=== PATIENT | female | born 1960 | race Caucasian/White ===

== ENCOUNTER 2022-02-12 16:20 | Emergency (ER) | payer MEDICAID ==
[2022-02-12] MEDS ORDERED: Take Home: Sulfamethoxazole/Trimethoprim 800-160 MG Tab, 2 Tab Pack PO ONE (17:13)
[2022-02-12 19:47] VITALS: BP 96/53; PULSE 93
== END 2022-02-12 17:35 | disposition home or self-care (01) ==
LOC: VM.ED 16:20
DX: L03.221 Cellulitis of neck (principal); Z79.899 Other long term (current) drug therapy; Z87.891 Personal history of nicotine dependence; W57.XXXA Bitten or stung by nonvenomous insect and other nonvenomous arthropods, initial encounter
CPT/HCPCS: 99283; A9270-GY

== ENCOUNTER 2022-10-07 23:38 | Observation (INO) | payer MEDICAID, MEDICARE ==
[2022-10-07] MEDS ORDERED: Sodium Chloride 0.9% 1,000 ML IV SCH (23:45)
[2022-10-07] MEDS ORDERED: Sodium Chloride 0.9% 10 ML Syringe FLUSH PRN (23:45)
[2022-10-07] MEDS ORDERED: Iopamidol 612 MG/ML 100 ML Bottle IVPUSH ONE (23:52)
[2022-10-08 00:10] LABS: BASOPHILS PERCENT AUTO 0.2 % (0.2-1.2); EOSINOPHILS ABSOLUTE AUTO 0.3 x10^3/uL (0.0-0.5); EOSINOPHILS PERCENT AUTO 2.6 % (0.0-4.0); HEMATOCRIT 33.1 % (33.0-47.0); HEMOGLOBIN 11.1 g/dL (12.0-16.0); IMMATURE GRAN ABSOLUTE AUTO 0.02 x10^3/uL (0.00-0.07); LYMPHOCYTES ABSOLUTE AUTO 2.8 x10^3/uL (1.0-4.8); LYMPHOCYTES PERCENT AUTO 29.8 % (25.0-50.0); MEAN CORPUSCULAR HEMOGLOBIN 30.4 pg (26.0-32.0); MEAN CORPUSCULAR HGB CONC 33.5 g/dL (32.0-36.0); MEAN CORPUSCULAR VOLUME 90.7 fL (78.0-93.0); MONOCYTES ABSOLUTE AUTO 0.8 x10^3/uL (0.0-0.8); MONOCYTES PERCENT AUTO 8.7 % (2.0-11.0); NEUTROPHILS ABSOLUTE AUTO 5.5 x10^3/uL (1.8-7.7); NEUTROPHILS PERCENT AUTO 58.5 % (50.0-80.0); PLATELET COUNT,PLT 264 x10^3/uL (130-400); RED BLOOD CELL COUNT 3.65 x10^6/uL (4.00-5.50); WHITE BLOOD CELL COUNT,WBC 9.5 x10^3/uL (4.0-10.0)
[2022-10-08 00:19] LABS: PROTHROMBIN TIME 10.5 SEC (9.5-12.2)
[2022-10-08 00:31] LABS: A/G RATIO 1.19; ALANINE AMINOTRANSFERASE,ALT 30 U/L (14-59); ALBUMIN 3.7 g/dL (3.4-5.0); ALKALINE PHOSPHATASE 66 U/L (46-116); ASPARTATE AMNIOTRANSFERASE,AST 34 U/L (15-37); BILIRUBIN TOTAL 0.3 mg/dL (0.2-1.0); BLOOD UREA NITROGEN,BUN 41 mg/dL (7-18); CALCIUM 9.4 mg/dL (8.5-10.1); CARBON DIOXIDE,CO2 30 mmol/L (21-32); CHLORIDE,CL 102 mmol/L (98-107); CREATININE 1.1 mg/dL (0.55-1.02); GLUCOSE RANDOM 116 mg/dL (70-99); MAGNESIUM 1.9 mg/dL (1.8-2.4); POTASSIUM,K 4.2 mmol/L (3.5-5.1); PROTEIN TOTAL,TP 6.8 g/dL (6.4-8.2); SODIUM,NA 140 mmol/L (136-145)
[2022-10-08 00:33] LABS: ANION GAP 12.2 mmol/L (5-15); C-REACTIVE PROTEIN < 0.2 mg/dL (<=0.9); ESTIMATED GFR 57 mL/min (>=60); ETHANOL BLOOD MEDICAL < 3 mg/dL (0-3)
[2022-10-08] MEDS ORDERED: Sodium Chloride 0.9% 1,000 ML IV SCH ×2 (02:45→20:45)
[2022-10-08] MEDS ORDERED: Lactated Ringers 1,000 ML IV SCH (02:45)
[2022-10-08] MEDS ORDERED: ClonazePAM 0.5 MG Tab PO PRN (11:11)
[2022-10-08] MEDS ORDERED: Albuterol 0.083% 2.5 MG/3 ML Neb Soln INH PRN (11:11)
[2022-10-08] MEDS ORDERED: Naproxen 500 MG Tab PO PRN (14:00)
[2022-10-08] MEDS: Acetaminophen 500 MG Tab PO SCH ×2 (16:50→19:49)
[2022-10-08] MEDS: Formoterol/Mometasone 200-5 MCG 13 GM Inhaler INH SCH ×2 (17:00→21:10)
[2022-10-08 17:01] LABS: APPEARANCE,URINE CLEAR (CLEAR); BILIRUBIN,URINE NEGATIVE (NEGATIVE); COLOR,URINE YELLOW (YELLOW); GLUCOSE,URINE NEGATIVE (NEGATIVE); KETONES,URINE NEGATIVE (NEGATIVE); LEUKOCYTE ESTERASE,URINE TRACE (NEGATIVE); NITRITE,URINE NEGATIVE (NEGATIVE); OCCULT BLOOD,URINE NEGATIVE (NEGATIVE); PROTEIN,URINE NEGATIVE (NEGATIVE); UROBILINOGEN,URINE 0.2 EU/dL (0.2)
[2022-10-08] MEDS: busPIRone 15 MG Tab PO SCH ×2 (17:03→21:09)
[2022-10-08 17:09] LABS: AMPHETAMINES SCREEN, URINE NEGATIVE (NEGATIVE); BACTERIA,URINE RARE /HPF (NOT SEEN); BARBITURATE SCREEN,URINE NEGATIVE (NEGATIVE); MUCUS,URINE RARE /LPF (NOT SEEN); RBC,URINE 0-5 /HPF (NOT SEEN); SQUAMOUS EPITHELIAL CELLS,UR FEW /HPF (NOT SEEN)
[2022-10-08 17:10] LABS: BENZODIAZEPINES SCREEN,URINE NEGATIVE (NEGATIVE); BUPRENORPHINE SCREEN,URINE POSITIVE (NEGATIVE); COCAINE METABOLITES,URINE NEGATIVE (NEGATIVE); METHADONE SCREEN, URINE NEGATIVE (NEGATIVE); METHAMPHETAMINE SCREEN, URINE NEGATIVE (NEGATIVE); OXYCODONE SCREEN,URINE NEGATIVE (NEGATIVE); PCP SCREEN,URINE NEGATIVE (NEGATIVE); THC SCREEN,URINE 50 NG/ML NEGATIVE (NEGATIVE)
[2022-10-08] MEDS: Pregabalin 50 MG Cap PO SCH ×2 (17:17→17:31)
[2022-10-08] MEDS: Montelukast 10 MG Tab PO SCH (17:18)
[2022-10-08] MEDS: DULoxetine 60 MG Cap PO SCH ×2 (17:18→21:09)
[2022-10-08] MEDS: Pregabalin 25 MG Cap PO SCH ×2 (17:18→17:31)
[2022-10-08] MEDS: Loratadine 10 MG Tab PO SCH (17:18)
[2022-10-08] MEDS: Pantoprazole 40 MG Tab.CR PO SCH (17:19)
[2022-10-08] MEDS: Tiotropium Bromide 4 GM Inhalation Spray (2.5mcg/1 dose; 10 doses) INH SCH (17:19)
[2022-10-08] MEDS: Fluticasone Propionate Nasal Spray 9.9 ML BOTTLE NAS SCH ×2 (17:20→23:44)
[2022-10-08] MEDS ORDERED: PREGABALIN 225 MG PO SCH (21:00)
[2022-10-08] MEDS ORDERED: Non-Formulary Medication 1 Each (Fluticasone Propion/Salmeterol [Advair Hfa 230-21 Mcg Inh PO SCH (21:00)
[2022-10-09] MEDS: Acetaminophen 500 MG Tab PO SCH ×2 (06:08→06:17)
[2022-10-09] MEDS: Pantoprazole 40 MG Tab.CR PO SCH (06:17)
[2022-10-09 08:04] LABS: BASOPHILS PERCENT AUTO 0.4 % (0.2-1.2); EOSINOPHILS ABSOLUTE AUTO 0.2 x10^3/uL (0.0-0.5); EOSINOPHILS PERCENT AUTO 3.2 % (0.0-4.0); IMMATURE GRAN ABSOLUTE AUTO 0.01 x10^3/uL (0.00-0.07); LYMPHOCYTES ABSOLUTE AUTO 2.7 x10^3/uL (1.0-4.8); LYMPHOCYTES PERCENT AUTO 39.9 % (25.0-50.0); MEAN CORPUSCULAR HEMOGLOBIN 29.9 pg (26.0-32.0); MEAN CORPUSCULAR HGB CONC 32.3 g/dL (32.0-36.0); MEAN CORPUSCULAR VOLUME 92.8 fL (78.0-93.0); MONOCYTES ABSOLUTE AUTO 0.8 x10^3/uL (0.0-0.8); MONOCYTES PERCENT AUTO 11.3 % (2.0-11.0); NEUTROPHILS ABSOLUTE AUTO 3.1 x10^3/uL (1.8-7.7); NEUTROPHILS PERCENT AUTO 45.1 % (50.0-80.0); PLATELET COUNT,PLT 221 x10^3/uL (130-400); RED BLOOD CELL COUNT 3.34 x10^6/uL (4.00-5.50); WHITE BLOOD CELL COUNT,WBC 6.8 x10^3/uL (4.0-10.0)
[2022-10-09 08:22] LABS: A/G RATIO 0.96; ALBUMIN 2.6 g/dL (3.4-5.0); BILIRUBIN TOTAL 0.1 mg/dL (0.2-1.0); CALCIUM 8.2 mg/dL (8.5-10.1); CREATININE 0.7 mg/dL (0.55-1.02); EST CRCL DRUG DOSING (CG) 69.81 mL/min; POTASSIUM,K 4.3 mmol/L (3.5-5.1); PROTEIN TOTAL,TP 5.3 g/dL (6.4-8.2)
[2022-10-09 08:26] LABS: ANION GAP 9.3 mmol/L (5-15)
[2022-10-09] MEDS ORDERED: BREXPIPRAZOLE 4 MG PO SCH (09:00)
[2022-10-09] MEDS: Formoterol/Mometasone 200-5 MCG 13 GM Inhaler INH SCH (09:05)
[2022-10-09] MEDS: Montelukast 10 MG Tab PO SCH (09:05)
[2022-10-09] MEDS: DULoxetine 60 MG Cap PO SCH (09:05)
[2022-10-09] MEDS: Loratadine 10 MG Tab PO SCH (09:05)
[2022-10-09] MEDS: busPIRone 15 MG Tab PO SCH (09:05)
[2022-10-09] MEDS: Tiotropium Bromide 4 GM Inhalation Spray (2.5mcg/1 dose; 10 doses) INH SCH (09:06)
[2022-10-09] MEDS: Fluticasone Propionate Nasal Spray 9.9 ML BOTTLE NAS SCH (09:06)
[2022-10-09 15:01] VITALS: BP 115/58; PULSE 81
== END 2022-10-09 13:40 | disposition home or self-care (01) ==
LOC: VM.ED 23:38 → VM.MS 10-08 01:46
PROVIDERS: ADMIT Physician Assistant; ATTEND Physician Assistant
DX: K57.30 Diverticulosis of large intestine without perforation or abscess without bleeding (principal); R53.1 Weakness; J40 Bronchitis, not specified as acute or chronic; M19.90 Unspecified osteoarthritis, unspecified site; F32.A Depression, unspecified; Z79.899 Other long term (current) drug therapy; W19.XXXA Unspecified fall, initial encounter
CPT/HCPCS: 36415; 70450; 72125; 74177; 80053; 80305-QW; 80307; 81001; 83735; 84484; 85025; 85610; 85730; 86140; 87086; 93010; 96360; 96361; 99223; 99232; 99238; 99285-25; A9270-GY; J3490; J7030; J7120; Q9967

== ENCOUNTER 2022-10-21 05:32 | Observation (INO) | payer MEDICARE, MEDICAID ==
[2022-10-22] MEDS ORDERED: Naloxone 0.4 MG/ML SDV IVPUSH ONE (04:08)
[2022-10-22 04:13] LABS: BASOPHILS PERCENT AUTO 0.4 % (0.2-1.2); EOSINOPHILS ABSOLUTE AUTO 0.2 x10^3/uL (0.0-0.5); EOSINOPHILS PERCENT AUTO 2.8 % (0.0-4.0); HEMATOCRIT 36.5 % (33.0-47.0); HEMOGLOBIN 12.6 g/dL (12.0-16.0); IMMATURE GRAN ABSOLUTE AUTO 0.01 x10^3/uL (0.00-0.07); LYMPHOCYTES ABSOLUTE AUTO 1.4 x10^3/uL (1.0-4.8); LYMPHOCYTES PERCENT AUTO 18.9 % (25.0-50.0); MEAN CORPUSCULAR HEMOGLOBIN 31.2 pg (26.0-32.0); MEAN CORPUSCULAR HGB CONC 34.5 g/dL (32.0-36.0); MEAN CORPUSCULAR VOLUME 90.3 fL (78.0-93.0); MONOCYTES ABSOLUTE AUTO 0.5 x10^3/uL (0.0-0.8); MONOCYTES PERCENT AUTO 6.9 % (2.0-11.0); NEUTROPHILS ABSOLUTE AUTO 5.3 x10^3/uL (1.8-7.7); NEUTROPHILS PERCENT AUTO 70.9 % (50.0-80.0); PLATELET COUNT,PLT 322 x10^3/uL (130-400); RED BLOOD CELL COUNT 4.04 x10^6/uL (4.00-5.50); WHITE BLOOD CELL COUNT,WBC 7.5 x10^3/uL (4.0-10.0)
[2022-10-22] MEDS ORDERED: Sodium Chloride 0.9% 1,000 ML IV ONE (04:20)
[2022-10-22] MEDS ORDERED: Sodium Chloride 0.9% 1,000 ML IV SCH ×3 (04:20→08:07)
[2022-10-22] MEDS ORDERED: Flumazenil 0.1 MG/ML 5 ML MDV IVPUSH ONE ×2 (04:24→04:31)
[2022-10-22 04:31] LABS: A/G RATIO 1.05; ALANINE AMINOTRANSFERASE,ALT 20 U/L (14-59); ALBUMIN 3.9 g/dL (3.4-5.0); ALKALINE PHOSPHATASE 89 U/L (46-116); ANION GAP 12.5 mmol/L (5-15); ASPARTATE AMNIOTRANSFERASE,AST 17 U/L (15-37); BILIRUBIN TOTAL 0.4 mg/dL (0.2-1.0); BLOOD UREA NITROGEN,BUN 23 mg/dL (7-18); C-REACTIVE PROTEIN < 0.2 mg/dL (<=0.9); CALCIUM 9.2 mg/dL (8.5-10.1); CARBON DIOXIDE,CO2 31 mmol/L (21-32); CHLORIDE,CL 105 mmol/L (98-107); CREATINE KINASE,CK 107 U/L (26-192); CREATININE 0.8 mg/dL (0.55-1.02); ESTIMATED GFR 83 mL/min (>=60); ETHANOL BLOOD MEDICAL < 3 mg/dL (0-3); GLUCOSE RANDOM 149 mg/dL (70-99); LACTATE DEHYDROGENASE,LDH 195 U/L (81-234); POTASSIUM,K 4.5 mmol/L (3.5-5.1); PROTEIN TOTAL,TP 7.6 g/dL (6.4-8.2); SODIUM,NA 144 mmol/L (136-145)
[2022-10-22 05:22] LABS: APPEARANCE,URINE CLEAR (CLEAR); BILIRUBIN,URINE NEGATIVE (NEGATIVE); COLOR,URINE YELLOW (YELLOW); GLUCOSE,URINE NEGATIVE (NEGATIVE); KETONES,URINE NEGATIVE (NEGATIVE); LEUKOCYTE ESTERASE,URINE NEGATIVE (NEGATIVE); NITRITE,URINE NEGATIVE (NEGATIVE); OCCULT BLOOD,URINE NEGATIVE (NEGATIVE); PROTEIN,URINE NEGATIVE (NEGATIVE); UROBILINOGEN,URINE 0.2 EU/dL (0.2)
[2022-10-22 05:27] LABS: AMPHETAMINES SCREEN, URINE NEGATIVE (NEGATIVE)
[2022-10-22 05:28] LABS: BARBITURATE SCREEN,URINE NEGATIVE (NEGATIVE); BENZODIAZEPINES SCREEN,URINE NEGATIVE (NEGATIVE); BUPRENORPHINE SCREEN,URINE NEGATIVE (NEGATIVE); COCAINE METABOLITES,URINE NEGATIVE (NEGATIVE); METHADONE SCREEN, URINE NEGATIVE (NEGATIVE); METHAMPHETAMINE SCREEN, URINE NEGATIVE (NEGATIVE); OXYCODONE SCREEN,URINE NEGATIVE (NEGATIVE); PCP SCREEN,URINE NEGATIVE (NEGATIVE); THC SCREEN,URINE 50 NG/ML POSITIVE (NEGATIVE)
[2022-10-22] MEDS ORDERED: Sodium Chloride 0.9% 10 ML Syringe FLUSH PRN (05:57)
[2022-10-22] MEDS ORDERED: Ondansetron 4 MG Tab.DIS PO PRN (05:57)
[2022-10-22 16:25] VITALS: BP 132/62; PULSE 75
== END 2022-10-22 16:15 | disposition home or self-care (01) ==
LOC: VM.ED 05:32 → UNDOADMOB 10-22 05:32 → VM.MS 10-22 05:32
PROVIDERS: ADMIT Physician Assistant Medical; ATTEND Physician Assistant Medical
DX: R41.82 Altered mental status, unspecified (principal); E78.00 Pure hypercholesterolemia, unspecified; F41.9 Anxiety disorder, unspecified; F32.A Depression, unspecified; F17.200 Nicotine dependence, unspecified, uncomplicated; Z79.899 Other long term (current) drug therapy; Z98.890 Other specified postprocedural states; W19.XXXA Unspecified fall, initial encounter
CPT/HCPCS: 70450; 80053; 80305-QW; 80307; 81003; 82550; 83615; 85025; 86140; G0378; J2310; J3490; J7030

== ENCOUNTER 2022-11-19 08:29 | Inpatient (IN) | payer MEDICARE, MEDICAID ==
[2022-11-19] MEDS ORDERED: Albuterol/Ipratropium 3.0-0.5 MG/3 ML Neb Soln INH PRN (14:03)
[2022-11-19] MEDS ORDERED: Non-Formulary Medication 1 Each (Naloxone 4 MG Spray) NAS PRN (14:03)
[2022-11-19] MEDS ORDERED: Non-Formulary Medication 1 Each (Epinephrine [Epinephrine] 0.3 MG/0.3 ML Auto.Injct) IM PRN (14:03)
[2022-11-19] MEDS ORDERED: Albuterol 0.083% 2.5 MG/3 ML Neb Soln INH PRN (14:03)
[2022-11-19] MEDS ORDERED: diphenhydrAMINE 25 MG Cap PO PRN (14:03)
[2022-11-19] MEDS ORDERED: Ondansetron 4 MG Tab.DIS PO PRN (14:28)
[2022-11-19] MEDS ORDERED: Albuterol HFA 18 Gm Inhaler INH PRN (14:46)
[2022-11-19] MEDS: oxyCODONE 5 MG Tab PO PRN ×2 (15:11→19:43)
[2022-11-19] MEDS: Acetaminophen 500 MG Tab PO SCH (18:03)
[2022-11-19] MEDS: Polyethylene Glycol 3350 Powder 17 GM Packet PO SCH (20:49)
[2022-11-19] MEDS: Formoterol/Mometasone 200-5 MCG 13 GM Inhaler INH SCH (20:49)
[2022-11-19] MEDS: Fluticasone Propionate Nasal Spray 9.9 ML BOTTLE NAS SCH (20:50)
[2022-11-19] MEDS: Amitriptyline 25 MG Tab PO SCH (20:50)
[2022-11-19] MEDS: Zolpidem 5 MG Tab PO SCH (20:51)
[2022-11-19] MEDS: DULoxetine 60 MG Cap PO SCH (20:51)
[2022-11-19] MEDS: busPIRone 15 MG Tab PO SCH (20:51)
[2022-11-19] MEDS: Pregabalin 50 MG Cap PO SCH (20:51)
[2022-11-19] MEDS: Pregabalin 25 MG Cap PO SCH (20:51)
[2022-11-19] MEDS: ClonazePAM 0.5 MG Tab PO PRN (20:57)
[2022-11-19] MEDS ORDERED: PREGABALIN 225 MG PO SCH (21:00)
[2022-11-20] MEDS: oxyCODONE 5 MG Tab PO PRN ×3 (00:27→21:05)
[2022-11-20] MEDS: Acetaminophen 500 MG Tab PO SCH ×4 (00:28→18:07)
[2022-11-20] MEDS: Pantoprazole 40 MG Tab.CR PO SCH (06:36)
[2022-11-20] MEDS: Baclofen 10 MG Tab PO PRN (06:36)
[2022-11-20] MEDS ORDERED: BREXPIPRAZOLE 4 MG PO SCH (09:00)
[2022-11-20] MEDS: Multivitamin Tab PO SCH (09:03)
[2022-11-20] MEDS: Tiotropium Bromide 4 GM Inhalation Spray (2.5mcg/1 dose; 10 doses) INH SCH (09:03)
[2022-11-20] MEDS: DULoxetine 60 MG Cap PO SCH ×2 (09:03→21:05)
[2022-11-20] MEDS: busPIRone 15 MG Tab PO SCH ×2 (09:03→21:04)
[2022-11-20] MEDS: Pregabalin 50 MG Cap PO SCH ×2 (09:05→21:05)
[2022-11-20] MEDS: Montelukast 10 MG Tab PO SCH (09:06)
[2022-11-20] MEDS: Pregabalin 25 MG Cap PO SCH ×2 (09:06→21:04)
[2022-11-20] MEDS: Loratadine 10 MG Tab PO SCH (09:06)
[2022-11-20] MEDS: Polyethylene Glycol 3350 Powder 17 GM Packet PO SCH ×2 (09:07→21:04)
[2022-11-20] MEDS: Amitriptyline 25 MG Tab PO SCH ×3 (09:10→21:05)
[2022-11-20] MEDS: Formoterol/Mometasone 200-5 MCG 13 GM Inhaler INH SCH ×2 (09:12→21:03)
[2022-11-20] MEDS: Fluticasone Propionate Nasal Spray 9.9 ML BOTTLE NAS SCH ×2 (09:12→21:03)
[2022-11-20] MEDS: ClonazePAM 0.5 MG Tab PO PRN ×2 (09:18→21:04)
[2022-11-20] MEDS: Menthol Lozenge MUCMEM PRN ×2 (12:55→21:09)
[2022-11-20] MEDS: Zolpidem 5 MG Tab PO SCH (21:04)
[2022-11-21] MEDS: Acetaminophen 500 MG Tab PO SCH ×4 (00:42→18:17)
[2022-11-21] MEDS: Baclofen 10 MG Tab PO PRN ×2 (00:43→08:48)
[2022-11-21] MEDS: oxyCODONE 5 MG Tab PO PRN ×4 (02:41→20:57)
[2022-11-21] MEDS: Pantoprazole 40 MG Tab.CR PO SCH (06:44)
[2022-11-21] MEDS: Montelukast 10 MG Tab PO SCH (08:48)
[2022-11-21] MEDS: Loratadine 10 MG Tab PO SCH (08:48)
[2022-11-21] MEDS: DULoxetine 60 MG Cap PO SCH ×2 (08:48→20:57)
[2022-11-21] MEDS: Pregabalin 25 MG Cap PO SCH ×2 (08:49→20:56)
[2022-11-21] MEDS: busPIRone 15 MG Tab PO SCH ×2 (08:49→20:57)
[2022-11-21] MEDS: Pregabalin 50 MG Cap PO SCH ×2 (08:49→20:56)
[2022-11-21] MEDS: Polyethylene Glycol 3350 Powder 17 GM Packet PO SCH ×2 (08:49→20:55)
[2022-11-21] MEDS: Formoterol/Mometasone 200-5 MCG 13 GM Inhaler INH SCH ×2 (08:51→20:55)
[2022-11-21] MEDS: Fluticasone Propionate Nasal Spray 9.9 ML BOTTLE NAS SCH ×2 (08:51→20:55)
[2022-11-21] MEDS: Tiotropium Bromide 4 GM Inhalation Spray (2.5mcg/1 dose; 10 doses) INH SCH (08:51)
[2022-11-21] MEDS: Multivitamin Tab PO SCH (08:52)
[2022-11-21] MEDS: Amitriptyline 25 MG Tab PO SCH ×3 (08:59→20:56)
[2022-11-21] MEDS: ClonazePAM 0.5 MG Tab PO PRN ×2 (09:04→20:58)
[2022-11-21] MEDS: Zolpidem 5 MG Tab PO SCH (20:57)
[2022-11-22] MEDS: Acetaminophen 500 MG Tab PO SCH ×4 (01:52→18:06)
[2022-11-22] MEDS: Baclofen 10 MG Tab PO PRN ×2 (01:53→20:35)
[2022-11-22] MEDS: Pantoprazole 40 MG Tab.CR PO SCH (06:00)
[2022-11-22] MEDS: oxyCODONE 5 MG Tab PO PRN ×4 (06:00→22:34)
[2022-11-22] MEDS: Tiotropium Bromide 4 GM Inhalation Spray (2.5mcg/1 dose; 10 doses) INH SCH (09:20)
[2022-11-22] MEDS: Formoterol/Mometasone 200-5 MCG 13 GM Inhaler INH SCH ×2 (09:21→20:34)
[2022-11-22] MEDS: Polyethylene Glycol 3350 Powder 17 GM Packet PO SCH ×2 (09:21→20:37)
[2022-11-22] MEDS: Fluticasone Propionate Nasal Spray 9.9 ML BOTTLE NAS SCH ×2 (09:21→20:34)
[2022-11-22] MEDS: Pregabalin 50 MG Cap PO SCH ×2 (09:22→20:34)
[2022-11-22] MEDS: Loratadine 10 MG Tab PO SCH (09:22)
[2022-11-22] MEDS: DULoxetine 60 MG Cap PO SCH ×2 (09:22→20:35)
[2022-11-22] MEDS: Pregabalin 25 MG Cap PO SCH ×2 (09:22→20:35)
[2022-11-22] MEDS: busPIRone 15 MG Tab PO SCH ×2 (09:24→20:35)
[2022-11-22] MEDS: Montelukast 10 MG Tab PO SCH (09:24)
[2022-11-22] MEDS: Multivitamin Tab PO SCH (09:24)
[2022-11-22] MEDS: Amitriptyline 25 MG Tab PO SCH ×3 (09:24→20:34)
[2022-11-22] MEDS: ClonazePAM 0.5 MG Tab PO PRN ×2 (09:30→20:33)
[2022-11-22] MEDS: Zolpidem 5 MG Tab PO SCH (20:35)
[2022-11-22] MEDS: Menthol Lozenge MUCMEM PRN (20:38)
[2022-11-23] MEDS: Acetaminophen 500 MG Tab PO SCH ×4 (01:35→18:39)
[2022-11-23] MEDS: oxyCODONE 5 MG Tab PO PRN ×3 (04:06→13:38)
[2022-11-23] MEDS: Pantoprazole 40 MG Tab.CR PO SCH (06:32)
[2022-11-23] MEDS: Baclofen 10 MG Tab PO PRN (06:32)
[2022-11-23] MEDS: Menthol Lozenge MUCMEM PRN ×2 (06:33→13:38)
[2022-11-23] MEDS: Pregabalin 50 MG Cap PO SCH ×2 (08:21→20:40)
[2022-11-23] MEDS: DULoxetine 60 MG Cap PO SCH ×2 (08:21→20:39)
[2022-11-23] MEDS: Loratadine 10 MG Tab PO SCH (08:21)
[2022-11-23] MEDS: Pregabalin 25 MG Cap PO SCH ×2 (08:21→20:40)
[2022-11-23] MEDS: busPIRone 15 MG Tab PO SCH ×2 (08:22→20:39)
[2022-11-23] MEDS: Amitriptyline 25 MG Tab PO SCH ×3 (08:22→20:40)
[2022-11-23] MEDS: Montelukast 10 MG Tab PO SCH (08:22)
[2022-11-23] MEDS: Multivitamin Tab PO SCH (08:22)
[2022-11-23] MEDS: Polyethylene Glycol 3350 Powder 17 GM Packet PO SCH ×2 (08:25→20:39)
[2022-11-23] MEDS: Fluticasone Propionate Nasal Spray 9.9 ML BOTTLE NAS SCH ×2 (08:27→20:42)
[2022-11-23] MEDS: Formoterol/Mometasone 200-5 MCG 13 GM Inhaler INH SCH ×2 (08:27→20:42)
[2022-11-23] MEDS: Tiotropium Bromide 4 GM Inhalation Spray (2.5mcg/1 dose; 10 doses) INH SCH (08:27)
[2022-11-23] MEDS: Zolpidem 5 MG Tab PO SCH (20:39)
[2022-11-24] MEDS: Acetaminophen 500 MG Tab PO SCH ×4 (02:59→18:33)
[2022-11-24] MEDS: oxyCODONE 5 MG Tab PO PRN ×4 (03:00→21:39)
[2022-11-24] MEDS: Pantoprazole 40 MG Tab.CR PO SCH (06:40)
[2022-11-24] MEDS: Multivitamin Tab PO SCH (08:59)
[2022-11-24] MEDS: DULoxetine 60 MG Cap PO SCH ×2 (08:59→21:37)
[2022-11-24] MEDS: Montelukast 10 MG Tab PO SCH (08:59)
[2022-11-24] MEDS: Pregabalin 25 MG Cap PO SCH ×2 (08:59→21:45)
[2022-11-24] MEDS: Loratadine 10 MG Tab PO SCH (08:59)
[2022-11-24] MEDS: Pregabalin 50 MG Cap PO SCH ×2 (08:59→21:38)
[2022-11-24] MEDS: Amitriptyline 25 MG Tab PO SCH ×3 (09:00→21:37)
[2022-11-24] MEDS: Tiotropium Bromide 4 GM Inhalation Spray (2.5mcg/1 dose; 10 doses) INH SCH (09:00)
[2022-11-24] MEDS: busPIRone 15 MG Tab PO SCH ×2 (09:00→21:38)
[2022-11-24] MEDS: Fluticasone Propionate Nasal Spray 9.9 ML BOTTLE NAS SCH ×2 (09:00→21:44)
[2022-11-24] MEDS: Formoterol/Mometasone 200-5 MCG 13 GM Inhaler INH SCH ×2 (09:00→21:44)
[2022-11-24] MEDS: Polyethylene Glycol 3350 Powder 17 GM Packet PO SCH ×2 (09:03→21:39)
[2022-11-24] MEDS: Zolpidem 5 MG Tab PO SCH (21:38)
[2022-11-25] MEDS: Acetaminophen 500 MG Tab PO SCH ×4 (00:03→18:27)
[2022-11-25] MEDS: oxyCODONE 5 MG Tab PO PRN ×4 (05:04→20:17)
[2022-11-25] MEDS: Pantoprazole 40 MG Tab.CR PO SCH (06:17)
[2022-11-25] MEDS: Polyethylene Glycol 3350 Powder 17 GM Packet PO SCH ×2 (09:06→20:15)
[2022-11-25] MEDS: Multivitamin Tab PO SCH (09:06)
[2022-11-25] MEDS: Amitriptyline 25 MG Tab PO SCH ×3 (09:06→20:16)
[2022-11-25] MEDS: busPIRone 15 MG Tab PO SCH ×2 (09:06→20:16)
[2022-11-25] MEDS: Loratadine 10 MG Tab PO SCH (09:07)
[2022-11-25] MEDS: Montelukast 10 MG Tab PO SCH (09:07)
[2022-11-25] MEDS: Pregabalin 25 MG Cap PO SCH ×2 (09:07→20:16)
[2022-11-25] MEDS: DULoxetine 60 MG Cap PO SCH ×2 (09:07→20:16)
[2022-11-25] MEDS: Pregabalin 50 MG Cap PO SCH ×2 (09:08→20:16)
[2022-11-25] MEDS: Formoterol/Mometasone 200-5 MCG 13 GM Inhaler INH SCH ×2 (09:14→20:15)
[2022-11-25] MEDS: Tiotropium Bromide 4 GM Inhalation Spray (2.5mcg/1 dose; 10 doses) INH SCH (09:14)
[2022-11-25] MEDS: Fluticasone Propionate Nasal Spray 9.9 ML BOTTLE NAS SCH ×2 (09:14→20:16)
[2022-11-25] MEDS: Zolpidem 5 MG Tab PO SCH (20:17)
[2022-11-26] MEDS: oxyCODONE 5 MG Tab PO PRN ×5 (01:08→20:08)
[2022-11-26] MEDS: Acetaminophen 500 MG Tab PO SCH ×4 (01:08→18:34)
[2022-11-26] MEDS: Pantoprazole 40 MG Tab.CR PO SCH (06:08)
[2022-11-26] MEDS: Polyethylene Glycol 3350 Powder 17 GM Packet PO SCH ×2 (09:36→20:10)
[2022-11-26] MEDS: Pregabalin 50 MG Cap PO SCH ×2 (09:37→20:08)
[2022-11-26] MEDS: Pregabalin 25 MG Cap PO SCH ×2 (09:37→20:10)
[2022-11-26] MEDS: Multivitamin Tab PO SCH (09:38)
[2022-11-26] MEDS: Amitriptyline 25 MG Tab PO SCH ×3 (09:38→20:09)
[2022-11-26] MEDS: DULoxetine 60 MG Cap PO SCH ×2 (09:38→20:09)
[2022-11-26] MEDS: busPIRone 15 MG Tab PO SCH ×2 (09:38→20:09)
[2022-11-26] MEDS: Loratadine 10 MG Tab PO SCH (09:38)
[2022-11-26] MEDS: Montelukast 10 MG Tab PO SCH (09:38)
[2022-11-26] MEDS: Fluticasone Propionate Nasal Spray 9.9 ML BOTTLE NAS SCH ×2 (09:39→20:11)
[2022-11-26] MEDS: Tiotropium Bromide 4 GM Inhalation Spray (2.5mcg/1 dose; 10 doses) INH SCH (09:40)
[2022-11-26] MEDS: Formoterol/Mometasone 200-5 MCG 13 GM Inhaler INH SCH ×2 (09:40→20:11)
[2022-11-26] MEDS: Zolpidem 5 MG Tab PO SCH (20:09)
[2022-11-27] MEDS: oxyCODONE 5 MG Tab PO PRN ×5 (00:01→20:23)
[2022-11-27] MEDS: Pantoprazole 40 MG Tab.CR PO SCH (06:03)
[2022-11-27] MEDS: Acetaminophen 500 MG Tab PO SCH ×4 (06:03→18:03)
[2022-11-27] MEDS: Polyethylene Glycol 3350 Powder 17 GM Packet PO SCH ×2 (08:48→20:22)
[2022-11-27] MEDS: Pregabalin 50 MG Cap PO SCH ×2 (08:49→20:22)
[2022-11-27] MEDS: Amitriptyline 25 MG Tab PO SCH ×3 (08:50→20:22)
[2022-11-27] MEDS: Fluticasone Propionate Nasal Spray 9.9 ML BOTTLE NAS SCH ×2 (08:50→20:24)
[2022-11-27] MEDS: DULoxetine 60 MG Cap PO SCH ×2 (08:50→20:24)
[2022-11-27] MEDS: Multivitamin Tab PO SCH (08:50)
[2022-11-27] MEDS: Montelukast 10 MG Tab PO SCH (08:51)
[2022-11-27] MEDS: Formoterol/Mometasone 200-5 MCG 13 GM Inhaler INH SCH ×2 (08:51→20:24)
[2022-11-27] MEDS: busPIRone 15 MG Tab PO SCH ×2 (08:51→20:23)
[2022-11-27] MEDS: Loratadine 10 MG Tab PO SCH (08:51)
[2022-11-27] MEDS: Tiotropium Bromide 4 GM Inhalation Spray (2.5mcg/1 dose; 10 doses) INH SCH (08:51)
[2022-11-27] MEDS: Pregabalin 25 MG Cap PO SCH ×2 (08:51→20:25)
[2022-11-27] MEDS: ClonazePAM 0.5 MG Tab PO PRN (14:29)
[2022-11-27] MEDS: Baclofen 10 MG Tab PO PRN (18:06)
[2022-11-27] MEDS: Zolpidem 5 MG Tab PO SCH (20:23)
[2022-11-28] MEDS: Acetaminophen 500 MG Tab PO SCH ×4 (00:48→18:03)
[2022-11-28] MEDS: oxyCODONE 5 MG Tab PO PRN ×5 (00:49→21:43)
[2022-11-28] MEDS: Pantoprazole 40 MG Tab.CR PO SCH (06:41)
[2022-11-28] MEDS: Polyethylene Glycol 3350 Powder 17 GM Packet PO SCH ×2 (09:01→20:34)
[2022-11-28] MEDS: Pregabalin 50 MG Cap PO SCH ×2 (09:11→20:29)
[2022-11-28] MEDS: busPIRone 15 MG Tab PO SCH ×2 (09:11→20:29)
[2022-11-28] MEDS: Loratadine 10 MG Tab PO SCH (09:12)
[2022-11-28] MEDS: Pregabalin 25 MG Cap PO SCH ×2 (09:12→20:29)
[2022-11-28] MEDS: Multivitamin Tab PO SCH (09:12)
[2022-11-28] MEDS: DULoxetine 60 MG Cap PO SCH ×2 (09:12→20:29)
[2022-11-28] MEDS: Montelukast 10 MG Tab PO SCH (09:12)
[2022-11-28] MEDS: Amitriptyline 25 MG Tab PO SCH ×2 (09:12→12:09)
[2022-11-28] MEDS: Formoterol/Mometasone 200-5 MCG 13 GM Inhaler INH SCH ×2 (09:13→20:28)
[2022-11-28] MEDS: Tiotropium Bromide 4 GM Inhalation Spray (2.5mcg/1 dose; 10 doses) INH SCH (09:13)
[2022-11-28] MEDS: Fluticasone Propionate Nasal Spray 9.9 ML BOTTLE NAS SCH ×2 (09:13→20:28)
[2022-11-28] MEDS: ClonazePAM 0.5 MG Tab PO PRN (12:08)
[2022-11-28] MEDS: Zolpidem 5 MG Tab PO SCH (20:29)
[2022-11-29] MEDS: Acetaminophen 500 MG Tab PO SCH ×4 (02:35→18:00)
[2022-11-29] MEDS: oxyCODONE 5 MG Tab PO PRN ×4 (03:58→22:45)
[2022-11-29] MEDS: Pantoprazole 40 MG Tab.CR PO SCH (06:27)
[2022-11-29] MEDS: Fluticasone Propionate Nasal Spray 9.9 ML BOTTLE NAS SCH ×2 (09:08→22:18)
[2022-11-29] MEDS: Tiotropium Bromide 4 GM Inhalation Spray (2.5mcg/1 dose; 10 doses) INH SCH (09:08)
[2022-11-29] MEDS: Formoterol/Mometasone 200-5 MCG 13 GM Inhaler INH SCH ×2 (09:09→22:18)
[2022-11-29] MEDS: Pregabalin 50 MG Cap PO SCH ×2 (09:09→22:18)
[2022-11-29] MEDS: busPIRone 15 MG Tab PO SCH ×2 (09:09→22:19)
[2022-11-29] MEDS: Multivitamin Tab PO SCH (09:10)
[2022-11-29] MEDS: DULoxetine 60 MG Cap PO SCH ×2 (09:10→22:19)
[2022-11-29] MEDS: Amitriptyline 25 MG Tab PO SCH ×2 (09:10→12:02)
[2022-11-29] MEDS: Polyethylene Glycol 3350 Powder 17 GM Packet PO SCH ×2 (09:10→09:11)
[2022-11-29] MEDS: Loratadine 10 MG Tab PO SCH (09:11)
[2022-11-29] MEDS: Montelukast 10 MG Tab PO SCH (09:11)
[2022-11-29] MEDS: Pregabalin 25 MG Cap PO SCH ×2 (09:11→22:18)
[2022-11-29] MEDS: ClonazePAM 0.5 MG Tab PO PRN (09:16)
[2022-11-29] MEDS: Baclofen 10 MG Tab PO PRN (18:00)
[2022-11-29] MEDS: Zolpidem 5 MG Tab PO SCH (22:19)
[2022-11-30] MEDS: Acetaminophen 500 MG Tab PO SCH ×5 (00:58→19:58)
[2022-11-30] MEDS: oxyCODONE 5 MG Tab PO PRN ×3 (02:58→12:51)
[2022-11-30] MEDS: Pantoprazole 40 MG Tab.CR PO SCH (07:06)
[2022-11-30] MEDS: Amitriptyline 25 MG Tab PO SCH ×2 (08:22→12:03)
[2022-11-30] MEDS: busPIRone 15 MG Tab PO SCH ×2 (08:23→20:46)
[2022-11-30] MEDS: Pregabalin 50 MG Cap PO SCH ×2 (08:24→20:47)
[2022-11-30] MEDS: Multivitamin Tab PO SCH (08:26)
[2022-11-30] MEDS: DULoxetine 60 MG Cap PO SCH ×2 (08:26→20:47)
[2022-11-30] MEDS: Loratadine 10 MG Tab PO SCH (08:27)
[2022-11-30] MEDS: Pregabalin 25 MG Cap PO SCH ×2 (08:27→20:48)
[2022-11-30] MEDS: Montelukast 10 MG Tab PO SCH (08:28)
[2022-11-30] MEDS: Fluticasone Propionate Nasal Spray 9.9 ML BOTTLE NAS SCH ×2 (08:29→20:43)
[2022-11-30] MEDS: Formoterol/Mometasone 200-5 MCG 13 GM Inhaler INH SCH ×2 (08:30→20:45)
[2022-11-30] MEDS: Tiotropium Bromide 4 GM Inhalation Spray (2.5mcg/1 dose; 10 doses) INH SCH (08:32)
[2022-11-30] MEDS: ClonazePAM 0.5 MG Tab PO PRN (09:53)
[2022-11-30] MEDS: Zolpidem 5 MG Tab PO SCH (20:48)
[2022-12-01] MEDS: oxyCODONE 5 MG Tab PO PRN ×2 (01:19→08:27)
[2022-12-01] MEDS: Acetaminophen 500 MG Tab PO SCH ×4 (01:21→20:33)
[2022-12-01] MEDS: Menthol Lozenge MUCMEM PRN ×2 (01:24→20:28)
[2022-12-01] MEDS: Pantoprazole 40 MG Tab.CR PO SCH (06:05)
[2022-12-01] MEDS: Pregabalin 50 MG Cap PO SCH ×2 (08:24→20:31)
[2022-12-01] MEDS: DULoxetine 60 MG Cap PO SCH ×2 (08:25→20:32)
[2022-12-01] MEDS: Amitriptyline 25 MG Tab PO SCH ×2 (08:27→13:06)
[2022-12-01] MEDS: busPIRone 15 MG Tab PO SCH ×2 (08:31→20:33)
[2022-12-01] MEDS: Montelukast 10 MG Tab PO SCH (08:31)
[2022-12-01] MEDS: Loratadine 10 MG Tab PO SCH (08:31)
[2022-12-01] MEDS: Formoterol/Mometasone 200-5 MCG 13 GM Inhaler INH SCH ×2 (08:33→20:29)
[2022-12-01] MEDS: Tiotropium Bromide 4 GM Inhalation Spray (2.5mcg/1 dose; 10 doses) INH SCH (08:33)
[2022-12-01] MEDS: Fluticasone Propionate Nasal Spray 9.9 ML BOTTLE NAS SCH ×2 (08:33→20:29)
[2022-12-01] MEDS: Pregabalin 25 MG Cap PO SCH ×2 (08:34→20:32)
[2022-12-01] MEDS: Multivitamin Tab PO SCH (08:35)
[2022-12-01] MEDS: Polyethylene Glycol 3350 Powder 17 GM Packet PO SCH (08:36)
[2022-12-01] MEDS: ClonazePAM 0.5 MG Tab PO PRN ×2 (13:05→22:05)
[2022-12-01] MEDS: Zolpidem 5 MG Tab PO SCH (22:05)
[2022-12-02] MEDS: Acetaminophen 500 MG Tab PO SCH ×4 (01:00→18:55)
[2022-12-02] MEDS: Pantoprazole 40 MG Tab.CR PO SCH (06:19)
[2022-12-02] MEDS: Montelukast 10 MG Tab PO SCH (09:50)
[2022-12-02] MEDS: busPIRone 15 MG Tab PO SCH ×2 (09:50→20:59)
[2022-12-02] MEDS: Pregabalin 50 MG Cap PO SCH ×2 (09:50→20:59)
[2022-12-02] MEDS: Amitriptyline 25 MG Tab PO SCH ×2 (09:51→12:59)
[2022-12-02] MEDS: DULoxetine 60 MG Cap PO SCH ×2 (09:51→20:59)
[2022-12-02] MEDS: Pregabalin 25 MG Cap PO SCH ×2 (09:51→20:59)
[2022-12-02] MEDS: Loratadine 10 MG Tab PO SCH (09:51)
[2022-12-02] MEDS: Multivitamin Tab PO SCH (09:54)
[2022-12-02] MEDS: ClonazePAM 0.5 MG Tab PO PRN ×2 (09:55→21:00)
[2022-12-02] MEDS: Tiotropium Bromide 4 GM Inhalation Spray (2.5mcg/1 dose; 10 doses) INH SCH (09:56)
[2022-12-02] MEDS: Formoterol/Mometasone 200-5 MCG 13 GM Inhaler INH SCH ×2 (09:56→21:02)
[2022-12-02] MEDS: Fluticasone Propionate Nasal Spray 9.9 ML BOTTLE NAS SCH ×2 (09:57→21:02)
[2022-12-02] MEDS: oxyCODONE 5 MG Tab PO PRN (15:03)
[2022-12-02] MEDS: Zolpidem 5 MG Tab PO SCH (21:00)
[2022-12-03] MEDS: Acetaminophen 500 MG Tab PO SCH ×4 (02:00→18:28)
[2022-12-03] MEDS: Pantoprazole 40 MG Tab.CR PO SCH (06:42)
[2022-12-03] MEDS: DULoxetine 60 MG Cap PO SCH ×2 (08:56→21:21)
[2022-12-03] MEDS: Pregabalin 50 MG Cap PO SCH ×2 (08:56→21:22)
[2022-12-03] MEDS: Polyethylene Glycol 3350 Powder 17 GM Packet PO SCH (08:56)
[2022-12-03] MEDS: Multivitamin Tab PO SCH (08:56)
[2022-12-03] MEDS: busPIRone 15 MG Tab PO SCH ×2 (08:57→21:21)
[2022-12-03] MEDS: Amitriptyline 25 MG Tab PO SCH ×2 (08:57→11:56)
[2022-12-03] MEDS: Pregabalin 25 MG Cap PO SCH ×2 (08:57→21:22)
[2022-12-03] MEDS: Loratadine 10 MG Tab PO SCH (08:57)
[2022-12-03] MEDS: Montelukast 10 MG Tab PO SCH (08:57)
[2022-12-03] MEDS: ClonazePAM 0.5 MG Tab PO PRN ×2 (09:01→21:21)
[2022-12-03] MEDS: Baclofen 10 MG Tab PO PRN (09:01)
[2022-12-03] MEDS: Fluticasone Propionate Nasal Spray 9.9 ML BOTTLE NAS SCH ×2 (09:03→21:20)
[2022-12-03] MEDS: Tiotropium Bromide 4 GM Inhalation Spray (2.5mcg/1 dose; 10 doses) INH SCH (09:03)
[2022-12-03] MEDS: Formoterol/Mometasone 200-5 MCG 13 GM Inhaler INH SCH ×2 (09:03→21:20)
[2022-12-03] MEDS: oxyCODONE 5 MG Tab PO PRN (11:56)
[2022-12-03] MEDS: Menthol Lozenge MUCMEM PRN ×3 (13:41→18:28)
[2022-12-03] MEDS: Zolpidem 5 MG Tab PO SCH (21:21)
[2022-12-04] MEDS: Acetaminophen 500 MG Tab PO SCH ×4 (01:48→18:40)
[2022-12-04] MEDS: oxyCODONE 5 MG Tab PO PRN ×2 (06:40→14:15)
[2022-12-04] MEDS: Pantoprazole 40 MG Tab.CR PO SCH (06:41)
[2022-12-04] MEDS: Pregabalin 50 MG Cap PO SCH ×2 (09:04→20:47)
[2022-12-04] MEDS: Pregabalin 25 MG Cap PO SCH ×2 (09:04→20:46)
[2022-12-04] MEDS: busPIRone 15 MG Tab PO SCH ×2 (09:04→20:47)
[2022-12-04] MEDS: Amitriptyline 25 MG Tab PO SCH ×2 (09:04→12:29)
[2022-12-04] MEDS: Loratadine 10 MG Tab PO SCH (09:05)
[2022-12-04] MEDS: Montelukast 10 MG Tab PO SCH (09:05)
[2022-12-04] MEDS: Multivitamin Tab PO SCH (09:05)
[2022-12-04] MEDS: DULoxetine 60 MG Cap PO SCH ×2 (09:05→20:47)
[2022-12-04] MEDS: ClonazePAM 0.5 MG Tab PO PRN ×2 (09:07→20:47)
[2022-12-04] MEDS: Baclofen 10 MG Tab PO PRN ×2 (09:07→20:50)
[2022-12-04] MEDS: Formoterol/Mometasone 200-5 MCG 13 GM Inhaler INH SCH ×2 (09:08→20:46)
[2022-12-04] MEDS: Tiotropium Bromide 4 GM Inhalation Spray (2.5mcg/1 dose; 10 doses) INH SCH (09:08)
[2022-12-04] MEDS: Fluticasone Propionate Nasal Spray 9.9 ML BOTTLE NAS SCH ×2 (09:09→20:46)
[2022-12-04] MEDS: Menthol Lozenge MUCMEM PRN ×3 (09:09→20:45)
[2022-12-04] MEDS: Zolpidem 5 MG Tab PO SCH (20:48)
[2022-12-05] MEDS: oxyCODONE 5 MG Tab PO PRN (00:26)
[2022-12-05] MEDS: Acetaminophen 500 MG Tab PO SCH ×4 (00:27→18:38)
[2022-12-05] MEDS: Pantoprazole 40 MG Tab.CR PO SCH (06:18)
[2022-12-05] MEDS: Multivitamin Tab PO SCH (10:06)
[2022-12-05] MEDS: DULoxetine 60 MG Cap PO SCH ×2 (10:06→21:13)
[2022-12-05] MEDS: Loratadine 10 MG Tab PO SCH (10:06)
[2022-12-05] MEDS: ClonazePAM 0.5 MG Tab PO PRN ×2 (10:06→21:13)
[2022-12-05] MEDS: Montelukast 10 MG Tab PO SCH (10:06)
[2022-12-05] MEDS: Pregabalin 50 MG Cap PO SCH ×2 (10:07→21:13)
[2022-12-05] MEDS: busPIRone 15 MG Tab PO SCH ×2 (10:07→21:13)
[2022-12-05] MEDS: Pregabalin 25 MG Cap PO SCH ×2 (10:07→21:12)
[2022-12-05] MEDS: Baclofen 10 MG Tab PO PRN ×2 (10:08→21:13)
[2022-12-05] MEDS: Amitriptyline 25 MG Tab PO SCH ×2 (10:08→12:51)
[2022-12-05] MEDS: Polyethylene Glycol 3350 Powder 17 GM Packet PO SCH (10:08)
[2022-12-05] MEDS: Fluticasone Propionate Nasal Spray 9.9 ML BOTTLE NAS SCH ×2 (10:09→21:13)
[2022-12-05] MEDS: Formoterol/Mometasone 200-5 MCG 13 GM Inhaler INH SCH ×2 (10:09→21:13)
[2022-12-05] MEDS: Tiotropium Bromide 4 GM Inhalation Spray (2.5mcg/1 dose; 10 doses) INH SCH (10:10)
[2022-12-05] MEDS ORDERED: Polyethylene Glycol 3350 Powder 17 GM Packet PO PRN (13:32)
[2022-12-05] MEDS ORDERED: oxyCODONE 5 MG Tab PO PRN (13:32)
[2022-12-05] MEDS: Zolpidem 5 MG Tab PO SCH (21:13)
[2022-12-06] MEDS: Acetaminophen 500 MG Tab PO SCH ×4 (00:45→18:31)
[2022-12-06] MEDS: Pantoprazole 40 MG Tab.CR PO SCH (06:31)
[2022-12-06] MEDS: Tiotropium Bromide 4 GM Inhalation Spray (2.5mcg/1 dose; 10 doses) INH SCH (08:34)
[2022-12-06] MEDS: DULoxetine 60 MG Cap PO SCH ×2 (08:34→20:31)
[2022-12-06] MEDS: Formoterol/Mometasone 200-5 MCG 13 GM Inhaler INH SCH ×2 (08:34→20:32)
[2022-12-06] MEDS: Fluticasone Propionate Nasal Spray 9.9 ML BOTTLE NAS SCH ×2 (08:34→20:32)
[2022-12-06] MEDS: Amitriptyline 25 MG Tab PO SCH ×2 (08:35→12:26)
[2022-12-06] MEDS: Pregabalin 25 MG Cap PO SCH ×2 (08:35→20:32)
[2022-12-06] MEDS: Loratadine 10 MG Tab PO SCH (08:35)
[2022-12-06] MEDS: Pregabalin 50 MG Cap PO SCH ×2 (08:35→20:31)
[2022-12-06] MEDS: Multivitamin Tab PO SCH (08:35)
[2022-12-06] MEDS: Montelukast 10 MG Tab PO SCH (08:35)
[2022-12-06] MEDS: busPIRone 15 MG Tab PO SCH ×2 (08:35→20:32)
[2022-12-06] MEDS: Baclofen 10 MG Tab PO PRN (08:37)
[2022-12-06] MEDS: ClonazePAM 0.5 MG Tab PO PRN ×2 (09:56→21:56)
[2022-12-06] MEDS: Zolpidem 5 MG Tab PO SCH (20:31)
[2022-12-07] MEDS: Acetaminophen 500 MG Tab PO SCH ×4 (00:30→18:15)
[2022-12-07] MEDS: Baclofen 10 MG Tab PO PRN ×3 (00:31→20:58)
[2022-12-07] MEDS: Pantoprazole 40 MG Tab.CR PO SCH (06:30)
[2022-12-07] MEDS: Tiotropium Bromide 4 GM Inhalation Spray (2.5mcg/1 dose; 10 doses) INH SCH (08:43)
[2022-12-07] MEDS: Fluticasone Propionate Nasal Spray 9.9 ML BOTTLE NAS SCH ×2 (08:43→20:57)
[2022-12-07] MEDS: Pregabalin 25 MG Cap PO SCH ×2 (08:44→20:58)
[2022-12-07] MEDS: Formoterol/Mometasone 200-5 MCG 13 GM Inhaler INH SCH ×2 (08:44→20:58)
[2022-12-07] MEDS: Montelukast 10 MG Tab PO SCH (08:44)
[2022-12-07] MEDS: Loratadine 10 MG Tab PO SCH (08:44)
[2022-12-07] MEDS: DULoxetine 60 MG Cap PO SCH ×2 (08:45→20:58)
[2022-12-07] MEDS: Pregabalin 50 MG Cap PO SCH ×2 (08:45→20:58)
[2022-12-07] MEDS: Multivitamin Tab PO SCH (08:45)
[2022-12-07] MEDS: Amitriptyline 25 MG Tab PO SCH ×2 (08:45→12:38)
[2022-12-07] MEDS: busPIRone 15 MG Tab PO SCH ×2 (08:45→20:58)
[2022-12-07] MEDS: ClonazePAM 0.5 MG Tab PO PRN (12:38)
[2022-12-07] MEDS: Menthol Lozenge MUCMEM PRN (20:59)
[2022-12-07] MEDS: Zolpidem 5 MG Tab PO SCH (20:59)
[2022-12-08] MEDS: Acetaminophen 500 MG Tab PO SCH ×3 (00:46→12:03)
[2022-12-08] MEDS: Menthol Lozenge MUCMEM PRN ×2 (00:48→06:22)
[2022-12-08] MEDS: Pantoprazole 40 MG Tab.CR PO SCH (06:20)
[2022-12-08] MEDS: Baclofen 10 MG Tab PO PRN (06:20)
[2022-12-08] MEDS: Amitriptyline 25 MG Tab PO SCH ×2 (08:34→12:03)
[2022-12-08] MEDS: Pregabalin 50 MG Cap PO SCH (08:35)
[2022-12-08] MEDS: Montelukast 10 MG Tab PO SCH (08:36)
[2022-12-08] MEDS: Pregabalin 25 MG Cap PO SCH (08:37)
[2022-12-08] MEDS: Multivitamin Tab PO SCH (08:37)
[2022-12-08] MEDS: DULoxetine 60 MG Cap PO SCH (08:37)
[2022-12-08] MEDS: busPIRone 15 MG Tab PO SCH (08:38)
[2022-12-08] MEDS: Loratadine 10 MG Tab PO SCH (08:39)
[2022-12-08] MEDS: Formoterol/Mometasone 200-5 MCG 13 GM Inhaler INH SCH (08:41)
[2022-12-08] MEDS: Fluticasone Propionate Nasal Spray 9.9 ML BOTTLE NAS SCH (08:42)
[2022-12-08] MEDS: Tiotropium Bromide 4 GM Inhalation Spray (2.5mcg/1 dose; 10 doses) INH SCH (08:42)
[2022-12-08 13:18] VITALS: BP 114/51; PULSE 90
== END 2022-12-08 13:10 | disposition home health service (06) | DRG 948 ==
LOC: VM.MS 11:20
PROVIDERS: ADMIT Nurse Practitioner Family; ATTEND Family Medicine
DX: R53.81 Other malaise (principal); I95.9 Hypotension, unspecified; R19.7 Diarrhea, unspecified; K21.9 Gastro-esophageal reflux disease without esophagitis; F41.9 Anxiety disorder, unspecified; G89.4 Chronic pain syndrome; G47.30 Sleep apnea, unspecified; F39 Unspecified mood [affective] disorder; G62.9 Polyneuropathy, unspecified; E78.00 Pure hypercholesterolemia, unspecified; J44.9 Chronic obstructive pulmonary disease, unspecified; G47.33 Obstructive sleep apnea (adult) (pediatric); M19.90 Unspecified osteoarthritis, unspecified site; Z98.1 Arthrodesis status; Z79.51 Long term (current) use of inhaled steroids; Z87.891 Personal history of nicotine dependence; Z79.899 Other long term (current) drug therapy
CPT/HCPCS: 95851-GO; 97110-GP; 97112-GP; 97116-GP; 97162-GP; 97165-GO; 97535-GO; A9270-GY

== ENCOUNTER 2023-01-12 20:40 | Inpatient (IN) | payer MEDICARE, MEDICAID ==
[2023-01-12] MEDS ORDERED: 50% Dextrose in Water 50 ML Syringe IVPUSH PRN (20:48)
[2023-01-12] MEDS ORDERED: Sodium Chloride 0.9% 1,000 ML IV SCH (21:00)
[2023-01-12 21:18] LABS: BASOPHILS PERCENT AUTO 0.2 % (0.2-1.2); EOSINOPHILS PERCENT AUTO 0.1 % (0.0-4.0); HEMATOCRIT 27.2 % (33.0-47.0); HEMOGLOBIN 9.4 g/dL (12.0-16.0); IMMATURE GRAN ABSOLUTE AUTO 0.04 x10^3/uL (0.00-0.07); LYMPHOCYTES ABSOLUTE AUTO 1.3 x10^3/uL (1.0-4.8); LYMPHOCYTES PERCENT AUTO 9.1 % (25.0-50.0); MEAN CORPUSCULAR HEMOGLOBIN 31.1 pg (26.0-32.0); MEAN CORPUSCULAR HGB CONC 34.6 g/dL (32.0-36.0); MEAN CORPUSCULAR VOLUME 90.1 fL (78.0-93.0); MONOCYTES ABSOLUTE AUTO 1.4 x10^3/uL (0.0-0.8); MONOCYTES PERCENT AUTO 10.4 % (2.0-11.0); NEUTROPHILS PERCENT AUTO 79.9 % (50.0-80.0); PLATELET COUNT,PLT 281 x10^3/uL (130-400); RED BLOOD CELL COUNT 3.02 x10^6/uL (4.00-5.50); WHITE BLOOD CELL COUNT,WBC 13.8 x10^3/uL (4.0-10.0)
[2023-01-12 21:38] LABS: INR 1.1 (2.0-3.5); PROTHROMBIN TIME 11.3 SEC (9.5-12.2); PTT,PARTIAL THROMBOPLSTIN TIME 29.9 SEC (23.6-33.6)
[2023-01-12 21:43] LABS: LACTIC ACID 0.6 mmol/L (0.4-2.0)
[2023-01-12 21:52] LABS: A/G RATIO 0.91; ALANINE AMINOTRANSFERASE,ALT 89 U/L (14-59); ALBUMIN 2.9 g/dL (3.4-5.0); ALKALINE PHOSPHATASE 65 U/L (46-116); ASPARTATE AMNIOTRANSFERASE,AST 172 U/L (15-37); BILIRUBIN TOTAL 0.5 mg/dL (0.2-1.0); BLOOD UREA NITROGEN,BUN 14 mg/dL (7-18); C-REACTIVE PROTEIN 10.48 mg/dL (<=0.30); CALCIUM 8.2 mg/dL (8.5-10.1); CARBON DIOXIDE,CO2 32 mmol/L (21-32); CHLORIDE,CL 98 mmol/L (98-107); CREATININE 0.6 mg/dL (0.55-1.02); EST CRCL DRUG DOSING (CG) 76.89 mL/min; GLUCOSE RANDOM 188 mg/dL (70-99); MAGNESIUM 1.6 mg/dL (1.8-2.4); POTASSIUM,K 3.4 mmol/L (3.5-5.1); PROTEIN TOTAL,TP 6.1 g/dL (6.4-8.2); SODIUM,NA 136 mmol/L (136-145); TSH ULTRASENSITIVE 0.391 uIU/mL (0.358-3.74)
[2023-01-12 21:53] LABS: ANION GAP 9.4 mmol/L (5-15); CREATINE KINASE,CK 2278 U/L (26-192); ESTIMATED GFR 101 mL/min (>=60)
[2023-01-12 21:57] LABS: ETHANOL BLOOD MEDICAL < 3 mg/dL (0-3)
[2023-01-12] MEDS ORDERED: Lactated Ringers 1,000 ML IV ONE ×2 (22:31→22:44)
[2023-01-12] MEDS ORDERED: Albuterol/Ipratropium 3.0-0.5 MG/3 ML Neb Soln INH PRN (22:45)
[2023-01-12] MEDS ORDERED: Albuterol 0.083% 2.5 MG/3 ML Neb Soln INH PRN (22:45)
[2023-01-12] MEDS ORDERED: ClonazePAM 0.5 MG Tab PO PRN (22:45)
[2023-01-13] MEDS: DULoxetine 60 MG Cap PO SCH ×3 (00:03→21:10)
[2023-01-13] MEDS: busPIRone 15 MG Tab PO SCH ×3 (00:03→21:09)
[2023-01-13] MEDS: Acetaminophen 500 MG Tab PO SCH ×4 (00:04→18:10)
[2023-01-13 07:28] LABS: BASOPHILS PERCENT AUTO 0.2 % (0.2-1.2); EOSINOPHILS ABSOLUTE AUTO 0.1 x10^3/uL (0.0-0.5); EOSINOPHILS PERCENT AUTO 0.7 % (0.0-4.0); HEMATOCRIT 24.6 % (33.0-47.0); HEMOGLOBIN 8.4 g/dL (12.0-16.0); IMMATURE GRAN ABSOLUTE AUTO 0.01 x10^3/uL (0.00-0.07); LYMPHOCYTES ABSOLUTE AUTO 2.5 x10^3/uL (1.0-4.8); LYMPHOCYTES PERCENT AUTO 20.4 % (25.0-50.0); MEAN CORPUSCULAR HEMOGLOBIN 30.4 pg (26.0-32.0); MEAN CORPUSCULAR HGB CONC 34.1 g/dL (32.0-36.0); MEAN CORPUSCULAR VOLUME 89.1 fL (78.0-93.0); MONOCYTES PERCENT AUTO 12.7 % (2.0-11.0); NEUTROPHILS PERCENT AUTO 65.9 % (50.0-80.0); PLATELET COUNT,PLT 259 x10^3/uL (130-400); RED BLOOD CELL COUNT 2.76 x10^6/uL (4.00-5.50); WHITE BLOOD CELL COUNT,WBC 12.1 x10^3/uL (4.0-10.0)
[2023-01-13 07:53] LABS: MONOCYTES ABSOLUTE AUTO 1.5 x10^3/uL (0.0-0.8)
[2023-01-13 07:56] LABS: A/G RATIO 0.86; ALBUMIN 2.5 g/dL (3.4-5.0); BILIRUBIN TOTAL 0.3 mg/dL (0.2-1.0); CALCIUM 8.1 mg/dL (8.5-10.1); CREATININE 0.5 mg/dL (0.55-1.02); EST CRCL DRUG DOSING (CG) 100.74 mL/min; POTASSIUM,K 3.4 mmol/L (3.5-5.1); PROTEIN TOTAL,TP 5.4 g/dL (6.4-8.2)
[2023-01-13 08:04] LABS: ANION GAP 10.4 mmol/L (5-15)
[2023-01-13] MEDS ORDERED: Albuterol 0.083% 2.5 MG/3 ML Neb Soln INH PRN (08:30)
[2023-01-13] MEDS: Multivitamin Tab PO SCH (08:47)
[2023-01-13] MEDS: Montelukast 10 MG Tab PO SCH (08:47)
[2023-01-13] MEDS: Pregabalin 25 MG Cap PO SCH ×2 (08:47→21:10)
[2023-01-13] MEDS: Pregabalin 50 MG Cap PO SCH ×2 (08:47→21:08)
[2023-01-13] MEDS: Omeprazole 20 MG Cap.CR PO SCH (08:48)
[2023-01-13] MEDS: Loratadine 10 MG Tab PO SCH (08:48)
[2023-01-13] MEDS: Formoterol/Mometasone 200-5 MCG 13 GM Inhaler INH SCH ×2 (08:48→21:10)
[2023-01-13] MEDS: Tiotropium Bromide 4 GM Inhalation Spray (2.5mcg/1 dose; 10 doses) INH SCH (08:51)
[2023-01-13] MEDS ORDERED: Amitriptyline 25 MG Tab PO SCH (09:00)
[2023-01-13] MEDS ORDERED: DULoxetine 60 MG Cap PO SCH (09:00)
[2023-01-13] MEDS ORDERED: busPIRone 15 MG Tab PO SCH (09:00)
[2023-01-13] MEDS: Enoxaparin 40 MG/0.4 ML Syringe SUBCUT SCH (11:33)
[2023-01-13] MEDS: Sodium Chloride 0.9% 1,000 ML IV SCH ×2 (12:04→22:01)
[2023-01-13 13:41] LABS: APPEARANCE,URINE CLEAR (CLEAR); BILIRUBIN,URINE NEGATIVE (NEGATIVE); COLOR,URINE YELLOW (YELLOW); GLUCOSE,URINE NEGATIVE (NEGATIVE); KETONES,URINE NEGATIVE (NEGATIVE); LEUKOCYTE ESTERASE,URINE SMALL (NEGATIVE); NITRITE,URINE NEGATIVE (NEGATIVE); OCCULT BLOOD,URINE NEGATIVE (NEGATIVE); PH,URINE 6.5 (5.0-8.0); PROTEIN,URINE NEGATIVE (NEGATIVE); UROBILINOGEN,URINE 0.2 EU/dL (0.2)
[2023-01-13 14:09] LABS: BACTERIA,URINE NOT SEEN /HPF (NOT SEEN); MUCUS,URINE NOT SEEN /LPF (NOT SEEN); RBC,URINE NOT SEEN /HPF (NOT SEEN); SQUAMOUS EPITHELIAL CELLS,UR RARE /HPF (NOT SEEN); WBC,URINE NOT SEEN /HPF (NOT SEEN)
[2023-01-13 14:13] LABS: AMPHETAMINES SCREEN, URINE NEGATIVE (NEGATIVE); BARBITURATE SCREEN,URINE NEGATIVE (NEGATIVE); BENZODIAZEPINES SCREEN,URINE NEGATIVE (NEGATIVE); COCAINE METABOLITES,URINE NEGATIVE (NEGATIVE); METHADONE SCREEN, URINE NEGATIVE (NEGATIVE); METHAMPHETAMINE SCREEN, URINE NEGATIVE (NEGATIVE); OXYCODONE SCREEN,URINE NEGATIVE (NEGATIVE); PCP SCREEN,URINE NEGATIVE (NEGATIVE); THC SCREEN,URINE 50 NG/ML POSITIVE (NEGATIVE)
[2023-01-13 14:14] LABS: BUPRENORPHINE SCREEN,URINE NEGATIVE (NEGATIVE)
[2023-01-13] MEDS: oxyCODONE 5 MG Tab PO PRN (17:44)
[2023-01-13] MEDS: Amitriptyline 25 MG Tab PO SCH (17:45)
[2023-01-13] MEDS: Zolpidem 5 MG Tab PO SCH (21:10)
[2023-01-13] MEDS: Menthol Lozenge MUCMEM PRN (23:05)
[2023-01-14] MEDS: Acetaminophen 500 MG Tab PO SCH ×4 (01:09→18:03)
[2023-01-14] MEDS: Menthol Lozenge MUCMEM PRN (01:16)
[2023-01-14 05:06] LABS: % TRANSFERRIN SAT 5.2 % (20.0-50.0)
[2023-01-14] MEDS: Sodium Chloride 0.9% 1,000 ML IV SCH ×2 (08:10→18:06)
[2023-01-14] MEDS: Omeprazole 20 MG Cap.CR PO SCH (08:12)
[2023-01-14] MEDS: Multivitamin Tab PO SCH (08:12)
[2023-01-14] MEDS: Amitriptyline 25 MG Tab PO SCH ×2 (08:12→17:41)
[2023-01-14] MEDS: DULoxetine 60 MG Cap PO SCH ×2 (08:13→20:25)
[2023-01-14] MEDS: Pregabalin 50 MG Cap PO SCH ×2 (08:13→20:21)
[2023-01-14] MEDS: Loratadine 10 MG Tab PO SCH (08:14)
[2023-01-14] MEDS: busPIRone 15 MG Tab PO SCH ×2 (08:15→20:23)
[2023-01-14] MEDS: Montelukast 10 MG Tab PO SCH (08:15)
[2023-01-14] MEDS: Pregabalin 25 MG Cap PO SCH ×2 (08:16→20:25)
[2023-01-14] MEDS: Enoxaparin 40 MG/0.4 ML Syringe SUBCUT SCH (08:16)
[2023-01-14] MEDS: Formoterol/Mometasone 200-5 MCG 13 GM Inhaler INH SCH ×2 (08:17→20:23)
[2023-01-14] MEDS: BREXPIPRAZOLE 4 MG PO SCH (08:19)
[2023-01-14 08:20] LABS: BASOPHILS PERCENT AUTO 0.5 % (0.2-1.2); EOSINOPHILS ABSOLUTE AUTO 0.2 x10^3/uL (0.0-0.5); EOSINOPHILS PERCENT AUTO 3.6 % (0.0-4.0); HEMATOCRIT 25.8 % (33.0-47.0); HEMOGLOBIN 8.6 g/dL (12.0-16.0); IMMATURE GRAN ABSOLUTE AUTO 0.01 x10^3/uL (0.00-0.07); LYMPHOCYTES ABSOLUTE AUTO 1.9 x10^3/uL (1.0-4.8); LYMPHOCYTES PERCENT AUTO 28.9 % (25.0-50.0); MEAN CORPUSCULAR HEMOGLOBIN 30.7 pg (26.0-32.0); MEAN CORPUSCULAR HGB CONC 33.3 g/dL (32.0-36.0); MEAN CORPUSCULAR VOLUME 92.1 fL (78.0-93.0); MONOCYTES ABSOLUTE AUTO 0.7 x10^3/uL (0.0-0.8); MONOCYTES PERCENT AUTO 10.5 % (2.0-11.0); NEUTROPHILS ABSOLUTE AUTO 3.7 x10^3/uL (1.8-7.7); NEUTROPHILS PERCENT AUTO 56.3 % (50.0-80.0); PLATELET COUNT,PLT 220 x10^3/uL (130-400); WHITE BLOOD CELL COUNT,WBC 6.6 x10^3/uL (4.0-10.0)
[2023-01-14] MEDS: Tiotropium Bromide 4 GM Inhalation Spray (2.5mcg/1 dose; 10 doses) INH SCH (08:20)
[2023-01-14 08:36] LABS: C-REACTIVE PROTEIN 8.46 mg/dL (<=0.30); MAGNESIUM 1.8 mg/dL (1.8-2.4)
[2023-01-14 08:39] LABS: A/G RATIO 0.74; ALBUMIN 2.3 g/dL (3.4-5.0); BILIRUBIN TOTAL 0.2 mg/dL (0.2-1.0); CALCIUM 8.1 mg/dL (8.5-10.1); CREATININE 0.6 mg/dL (0.55-1.02); EST CRCL DRUG DOSING (CG) 83.95 mL/min; POTASSIUM,K 3.8 mmol/L (3.5-5.1); PROTEIN TOTAL,TP 5.4 g/dL (6.4-8.2)
[2023-01-14 08:43] LABS: ANION GAP 6.8 mmol/L (5-15)
[2023-01-14] MEDS: ClonazePAM 0.5 MG Tab PO SCH ×2 (10:24→20:24)
[2023-01-14] MEDS: Ferrous Sulfate 325 MG Tab PO SCH (10:24)
[2023-01-14] MEDS: oxyCODONE 5 MG Tab PO PRN (13:09)
[2023-01-14] MEDS: Zolpidem 5 MG Tab PO SCH (20:25)
[2023-01-15] MEDS: Acetaminophen 500 MG Tab PO SCH ×4 (01:08→18:05)
[2023-01-15] MEDS: Sodium Chloride 0.9% 1,000 ML IV SCH ×2 (04:12→20:30)
[2023-01-15] MEDS ORDERED: Bisacodyl 10 MG Supp RECTAL PRN (07:41)
[2023-01-15 08:03] LABS: BASOPHILS PERCENT AUTO 0.4 % (0.2-1.2); EOSINOPHILS ABSOLUTE AUTO 0.3 x10^3/uL (0.0-0.5); HEMATOCRIT 27.8 % (33.0-47.0); HEMOGLOBIN 9.4 g/dL (12.0-16.0); IMMATURE GRAN ABSOLUTE AUTO 0.01 x10^3/uL (0.00-0.07); LYMPHOCYTES ABSOLUTE AUTO 2.1 x10^3/uL (1.0-4.8); LYMPHOCYTES PERCENT AUTO 30.8 % (25.0-50.0); MEAN CORPUSCULAR HEMOGLOBIN 30.8 pg (26.0-32.0); MEAN CORPUSCULAR HGB CONC 33.8 g/dL (32.0-36.0); MEAN CORPUSCULAR VOLUME 91.1 fL (78.0-93.0); MONOCYTES ABSOLUTE AUTO 0.6 x10^3/uL (0.0-0.8); MONOCYTES PERCENT AUTO 9.3 % (2.0-11.0); NEUTROPHILS ABSOLUTE AUTO 3.7 x10^3/uL (1.8-7.7); NEUTROPHILS PERCENT AUTO 55.4 % (50.0-80.0); PLATELET COUNT,PLT 254 x10^3/uL (130-400); RED BLOOD CELL COUNT 3.05 x10^6/uL (4.00-5.50); WHITE BLOOD CELL COUNT,WBC 6.7 x10^3/uL (4.0-10.0)
[2023-01-15 08:20] LABS: CALCIUM 8.2 mg/dL (8.5-10.1); CREATININE 0.6 mg/dL (0.55-1.02); EST CRCL DRUG DOSING (CG) 83.95 mL/min; POTASSIUM,K 3.9 mmol/L (3.5-5.1)
[2023-01-15 08:28] LABS: ANION GAP 10.9 mmol/L (5-15)
[2023-01-15] MEDS: Pregabalin 50 MG Cap PO SCH ×2 (08:43→20:25)
[2023-01-15] MEDS: Ferrous Sulfate 325 MG Tab PO SCH (08:45)
[2023-01-15] MEDS: Amitriptyline 25 MG Tab PO SCH ×2 (08:45→18:06)
[2023-01-15] MEDS: Multivitamin Tab PO SCH (08:46)
[2023-01-15] MEDS: busPIRone 15 MG Tab PO SCH ×2 (08:46→20:25)
[2023-01-15] MEDS: DULoxetine 60 MG Cap PO SCH ×2 (08:46→20:25)
[2023-01-15] MEDS: Loratadine 10 MG Tab PO SCH (08:47)
[2023-01-15] MEDS: Montelukast 10 MG Tab PO SCH (08:47)
[2023-01-15] MEDS: ClonazePAM 0.5 MG Tab PO SCH ×2 (08:48→20:26)
[2023-01-15] MEDS: Omeprazole 20 MG Cap.CR PO SCH (08:48)
[2023-01-15] MEDS: Pregabalin 25 MG Cap PO SCH ×2 (08:52→20:26)
[2023-01-15] MEDS: Enoxaparin 40 MG/0.4 ML Syringe SUBCUT SCH (08:52)
[2023-01-15] MEDS: Formoterol/Mometasone 200-5 MCG 13 GM Inhaler INH SCH ×2 (08:54→20:24)
[2023-01-15] MEDS: Tiotropium Bromide 4 GM Inhalation Spray (2.5mcg/1 dose; 10 doses) INH SCH (08:55)
[2023-01-15] MEDS: BREXPIPRAZOLE 4 MG PO SCH (08:55)
[2023-01-15] MEDS: oxyCODONE 5 MG Tab PO PRN ×2 (10:06→20:27)
[2023-01-15] MEDS: Sennosides/Docusate Sodium 50-8.6 MG Tab PO PRN (10:06)
[2023-01-15] MEDS: Polyethylene Glycol 3350 Powder 17 GM Packet PO SCH (20:25)
[2023-01-15] MEDS: Zolpidem 5 MG Tab PO SCH (20:26)
[2023-01-15] MEDS: Menthol Lozenge MUCMEM PRN (20:29)
[2023-01-16] MEDS: Acetaminophen 500 MG Tab PO SCH ×4 (01:14→18:40)
[2023-01-16] MEDS: Baclofen 10 MG Tab PO PRN (01:15)
[2023-01-16] MEDS: diphenhydrAMINE 25 MG Cap PO PRN ×2 (06:30→22:21)
[2023-01-16] MEDS: Polyethylene Glycol 3350 Powder 17 GM Packet PO SCH ×2 (08:45→20:33)
[2023-01-16] MEDS: Enoxaparin 40 MG/0.4 ML Syringe SUBCUT SCH (08:46)
[2023-01-16] MEDS: Tiotropium Bromide 4 GM Inhalation Spray (2.5mcg/1 dose; 10 doses) INH SCH (08:47)
[2023-01-16] MEDS: busPIRone 15 MG Tab PO SCH ×2 (08:47→20:33)
[2023-01-16] MEDS: Montelukast 10 MG Tab PO SCH (08:48)
[2023-01-16] MEDS: Ferrous Sulfate 325 MG Tab PO SCH (08:48)
[2023-01-16] MEDS: Pregabalin 50 MG Cap PO SCH ×2 (08:48→20:32)
[2023-01-16] MEDS: Amitriptyline 25 MG Tab PO SCH ×2 (08:48→18:40)
[2023-01-16] MEDS: Formoterol/Mometasone 200-5 MCG 13 GM Inhaler INH SCH ×2 (08:48→20:32)
[2023-01-16] MEDS: Multivitamin Tab PO SCH (08:48)
[2023-01-16] MEDS: Pregabalin 25 MG Cap PO SCH ×2 (08:49→20:33)
[2023-01-16] MEDS: DULoxetine 60 MG Cap PO SCH ×2 (08:49→20:33)
[2023-01-16] MEDS: Loratadine 10 MG Tab PO SCH (08:49)
[2023-01-16] MEDS: ClonazePAM 0.5 MG Tab PO SCH ×2 (08:49→20:33)
[2023-01-16] MEDS: oxyCODONE 5 MG Tab PO PRN ×2 (08:49→20:33)
[2023-01-16] MEDS: Omeprazole 20 MG Cap.CR PO SCH (08:49)
[2023-01-16] MEDS: BREXPIPRAZOLE 4 MG PO SCH (08:50)
[2023-01-16 09:27] LABS: BASOPHILS PERCENT AUTO 0.5 % (0.2-1.2); EOSINOPHILS ABSOLUTE AUTO 0.3 x10^3/uL (0.0-0.5); HEMATOCRIT 28.9 % (33.0-47.0); HEMOGLOBIN 9.7 g/dL (12.0-16.0); IMMATURE GRAN ABSOLUTE AUTO 0.02 x10^3/uL (0.00-0.07); LYMPHOCYTES ABSOLUTE AUTO 1.8 x10^3/uL (1.0-4.8); LYMPHOCYTES PERCENT AUTO 28.5 % (25.0-50.0); MEAN CORPUSCULAR HEMOGLOBIN 30.8 pg (26.0-32.0); MEAN CORPUSCULAR HGB CONC 33.6 g/dL (32.0-36.0); MEAN CORPUSCULAR VOLUME 91.7 fL (78.0-93.0); MONOCYTES ABSOLUTE AUTO 0.5 x10^3/uL (0.0-0.8); MONOCYTES PERCENT AUTO 8.2 % (2.0-11.0); NEUTROPHILS ABSOLUTE AUTO 3.8 x10^3/uL (1.8-7.7); NEUTROPHILS PERCENT AUTO 58.5 % (50.0-80.0); PLATELET COUNT,PLT 276 x10^3/uL (130-400); RED BLOOD CELL COUNT 3.15 x10^6/uL (4.00-5.50); WHITE BLOOD CELL COUNT,WBC 6.4 x10^3/uL (4.0-10.0)
[2023-01-16 09:52] LABS: ANION GAP 9.9 mmol/L (5-15); CALCIUM 8.8 mg/dL (8.5-10.1); CREATININE 0.6 mg/dL (0.55-1.02); EST CRCL DRUG DOSING (CG) 83.95 mL/min; POTASSIUM,K 3.9 mmol/L (3.5-5.1)
[2023-01-16] MEDS: Zolpidem 5 MG Tab PO SCH (20:33)
[2023-01-16] MEDS: Menthol Lozenge MUCMEM PRN (20:38)
[2023-01-17] MEDS: Acetaminophen 500 MG Tab PO SCH ×3 (01:02→12:24)
[2023-01-17] MEDS: Baclofen 10 MG Tab PO PRN ×2 (01:02→06:41)
[2023-01-17] MEDS: Sennosides/Docusate Sodium 50-8.6 MG Tab PO PRN (01:20)
[2023-01-17 06:43] LABS: BASOPHILS PERCENT AUTO 0.5 % (0.2-1.2); EOSINOPHILS ABSOLUTE AUTO 0.3 x10^3/uL (0.0-0.5); EOSINOPHILS PERCENT AUTO 4.5 % (0.0-4.0); HEMATOCRIT 28.6 % (33.0-47.0); HEMOGLOBIN 9.8 g/dL (12.0-16.0); IMMATURE GRAN ABSOLUTE AUTO 0.03 x10^3/uL (0.00-0.07); LYMPHOCYTES ABSOLUTE AUTO 2.1 x10^3/uL (1.0-4.8); LYMPHOCYTES PERCENT AUTO 35.6 % (25.0-50.0); MEAN CORPUSCULAR HEMOGLOBIN 30.6 pg (26.0-32.0); MEAN CORPUSCULAR HGB CONC 34.3 g/dL (32.0-36.0); MEAN CORPUSCULAR VOLUME 89.4 fL (78.0-93.0); MONOCYTES ABSOLUTE AUTO 0.7 x10^3/uL (0.0-0.8); MONOCYTES PERCENT AUTO 10.9 % (2.0-11.0); NEUTROPHILS ABSOLUTE AUTO 2.9 x10^3/uL (1.8-7.7); PLATELET COUNT,PLT 303 x10^3/uL (130-400)
[2023-01-17] MEDS: diphenhydrAMINE 25 MG Cap PO PRN (06:53)
[2023-01-17 07:25] LABS: CALCIUM 8.8 mg/dL (8.5-10.1); CREATININE 0.6 mg/dL (0.55-1.02); EST CRCL DRUG DOSING (CG) 83.95 mL/min; POTASSIUM,K 4.1 mmol/L (3.5-5.1)
[2023-01-17 07:26] LABS: ANION GAP 8.1 mmol/L (5-15)
[2023-01-17] MEDS: Formoterol/Mometasone 200-5 MCG 13 GM Inhaler INH SCH (09:12)
[2023-01-17] MEDS: ClonazePAM 0.5 MG Tab PO SCH (09:13)
[2023-01-17] MEDS: Tiotropium Bromide 4 GM Inhalation Spray (2.5mcg/1 dose; 10 doses) INH SCH (09:13)
[2023-01-17] MEDS: Pregabalin 25 MG Cap PO SCH (09:13)
[2023-01-17] MEDS: Amitriptyline 25 MG Tab PO SCH (09:13)
[2023-01-17] MEDS: Pregabalin 50 MG Cap PO SCH (09:14)
[2023-01-17] MEDS: Multivitamin Tab PO SCH (09:14)
[2023-01-17] MEDS: Loratadine 10 MG Tab PO SCH (09:14)
[2023-01-17] MEDS: Enoxaparin 40 MG/0.4 ML Syringe SUBCUT SCH (09:14)
[2023-01-17] MEDS: Omeprazole 20 MG Cap.CR PO SCH (09:14)
[2023-01-17] MEDS: Montelukast 10 MG Tab PO SCH (09:14)
[2023-01-17] MEDS: busPIRone 15 MG Tab PO SCH (09:14)
[2023-01-17] MEDS: Ferrous Sulfate 325 MG Tab PO SCH (09:14)
[2023-01-17] MEDS: DULoxetine 60 MG Cap PO SCH (09:14)
[2023-01-17] MEDS: Polyethylene Glycol 3350 Powder 17 GM Packet PO SCH (09:15)
[2023-01-17] MEDS: BREXPIPRAZOLE 4 MG PO SCH (09:15)
[2023-01-17 11:30] VITALS: BP 103/58; PULSE 81
== END 2023-01-17 15:45 | disposition swing bed (61) | DRG 566 ==
LOC: VM.ED 20:40 → VM.MS 22:29
PROVIDERS: ADMIT Physician Assistant; ATTEND Physician Assistant
PROC: 0T9B70Z Drainage of Bladder with Drainage Device, Via Natural or Artificial Opening (ICD-10-PCS; principal; 2023-01-14)
DX: T79.6XXA Traumatic ischemia of muscle, initial encounter (principal); S82.62XA Displaced fracture of lateral malleolus of left fibula, initial encounter for closed fracture; E86.0 Dehydration; L89.622 Pressure ulcer of left heel, stage 2; J44.9 Chronic obstructive pulmonary disease, unspecified; F32.A Depression, unspecified; M19.90 Unspecified osteoarthritis, unspecified site; E78.00 Pure hypercholesterolemia, unspecified; D72.829 Elevated white blood cell count, unspecified; I95.9 Hypotension, unspecified; M51.35 Other intervertebral disc degeneration, thoracolumbar region; F17.200 Nicotine dependence, unspecified, uncomplicated; K58.9 Irritable bowel syndrome, unspecified; G47.33 Obstructive sleep apnea (adult) (pediatric); E16.2 Hypoglycemia, unspecified; R33.9 Retention of urine, unspecified; G47.00 Insomnia, unspecified; F41.1 Generalized anxiety disorder; E83.42 Hypomagnesemia; R79.89 Other specified abnormal findings of blood chemistry; G62.9 Polyneuropathy, unspecified; Z91.030 Bee allergy status; K21.9 Gastro-esophageal reflux disease without esophagitis; Z85.43 Personal history of malignant neoplasm of ovary; Z85.42 Personal history of malignant neoplasm of other parts of uterus; Z85.41 Personal history of malignant neoplasm of cervix uteri; Z98.890 Other specified postprocedural states; W19.XXXA Unspecified fall, initial encounter; Z79.899 Other long term (current) drug therapy; Z98.1 Arthrodesis status; W18.30XA Fall on same level, unspecified, initial encounter
CPT/HCPCS: 36415; 51701; 51702; 51798; 70450; 71045; 72125; 73610-LT; 73630-LT; 80048; 80053; 80305-QW; 80307; 81001; 82140; 82550; 82728; 82947; 83540; 83550; 83605; 83735; 84443; 84484; 85025; 85610; 85730; 86140; 87086; 93005; 93010; 96361; 96374; 97110-GP; 97116-GP; 97162-GP; 97165-GO; 97535-GO; 99284; 99285-25; A9270-GY; C1758; J1650; J3490; J7030; J7120

== ENCOUNTER 2023-01-17 11:13 | Inpatient (IN) | payer MEDICARE, MEDICAID ==
[2023-01-17] MEDS ORDERED: Sennosides/Docusate Sodium 50-8.6 MG Tab PO PRN (15:34)
[2023-01-17] MEDS ORDERED: 50% Dextrose in Water 50 ML Syringe IVPUSH PRN (15:34)
[2023-01-17] MEDS ORDERED: Menthol Lozenge PO PRN (15:34)
[2023-01-17] MEDS ORDERED: Albuterol 0.083% 2.5 MG/3 ML Neb Soln NEB PRN (15:34)
[2023-01-17] MEDS ORDERED: Bisacodyl 10 MG Supp RECTAL PRN (15:34)
[2023-01-17] MEDS ORDERED: Albuterol/Ipratropium 3.0-0.5 MG/3 ML Neb Soln NEB PRN (15:34)
[2023-01-17] MEDS: Baclofen 10 MG Tab PO PRN (18:11)
[2023-01-17] MEDS: Acetaminophen 500 MG Tab PO SCH (18:11)
[2023-01-17] MEDS ORDERED: Sodium Chloride 0.9% 500 ML IV ONE (18:25)
[2023-01-17] MEDS: busPIRone 15 MG Tab PO SCH (20:27)
[2023-01-17] MEDS: Pregabalin 50 MG Cap PO SCH (20:27)
[2023-01-17] MEDS: Pregabalin 25 MG Cap PO SCH (20:27)
[2023-01-17] MEDS: Zolpidem 5 MG Tab PO SCH (20:28)
[2023-01-17] MEDS: Polyethylene Glycol 3350 Powder 17 GM Packet PO SCH (20:29)
[2023-01-17] MEDS: DULoxetine 60 MG Cap PO SCH (20:29)
[2023-01-17] MEDS: Formoterol/Mometasone 200-5 MCG 13 GM Inhaler INH SCH (20:33)
[2023-01-17] MEDS: oxyCODONE 5 MG Tab PO PRN (20:40)
[2023-01-18] MEDS: Acetaminophen 500 MG Tab PO SCH ×4 (01:02→18:01)
[2023-01-18] MEDS: Baclofen 10 MG Tab PO PRN ×2 (01:03→09:18)
[2023-01-18] MEDS: Formoterol/Mometasone 200-5 MCG 13 GM Inhaler INH SCH ×2 (06:48→21:04)
[2023-01-18] MEDS: Tiotropium Bromide 4 GM Inhalation Spray (2.5mcg/1 dose; 10 doses) INH SCH (06:48)
[2023-01-18 07:12] LABS: CALCIUM 9.1 mg/dL (8.5-10.1); CREATININE 0.6 mg/dL (0.55-1.02); EST CRCL DRUG DOSING (CG) 83.95 mL/min; POTASSIUM,K 4.2 mmol/L (3.5-5.1)
[2023-01-18 07:15] LABS: ANION GAP 10.2 mmol/L (5-15)
[2023-01-18] MEDS ORDERED: Brexpiprazole [Rexulti] 4 MG Tablet PO SCH (09:00)
[2023-01-18] MEDS: Polyethylene Glycol 3350 Powder 17 GM Packet PO SCH ×2 (09:18→21:03)
[2023-01-18] MEDS: Montelukast 10 MG Tab PO SCH (09:18)
[2023-01-18] MEDS: Omeprazole 20 MG Cap.CR PO SCH (09:19)
[2023-01-18] MEDS: DULoxetine 60 MG Cap PO SCH ×2 (09:19→21:03)
[2023-01-18] MEDS: Multivitamin Tab PO SCH (09:19)
[2023-01-18] MEDS: Ferrous Sulfate 325 MG Tab PO SCH (09:19)
[2023-01-18] MEDS: Pregabalin 50 MG Cap PO SCH ×2 (09:19→21:03)
[2023-01-18] MEDS: Loratadine 10 MG Tab PO SCH (09:19)
[2023-01-18] MEDS: busPIRone 15 MG Tab PO SCH ×2 (09:19→21:03)
[2023-01-18] MEDS: Pregabalin 25 MG Cap PO SCH ×2 (09:19→21:03)
[2023-01-18] MEDS: diphenhydrAMINE 25 MG Cap PO PRN (12:53)
[2023-01-18] MEDS: Menthol 10%/Methyl Salicylate 15% 85 GM Tube TOP SCH (21:02)
[2023-01-18] MEDS: Zolpidem 5 MG Tab PO SCH (21:03)
[2023-01-19] MEDS: Acetaminophen 500 MG Tab PO SCH ×5 (01:35→20:32)
[2023-01-19] MEDS: Baclofen 10 MG Tab PO PRN (01:45)
[2023-01-19] MEDS: oxyCODONE 5 MG Tab PO PRN ×2 (04:21→16:57)
[2023-01-19] MEDS: Tiotropium Bromide 4 GM Inhalation Spray (2.5mcg/1 dose; 10 doses) INH SCH (06:34)
[2023-01-19] MEDS: Formoterol/Mometasone 200-5 MCG 13 GM Inhaler INH SCH ×2 (06:34→20:58)
[2023-01-19] MEDS: busPIRone 15 MG Tab PO SCH ×2 (08:07→20:18)
[2023-01-19] MEDS: Pregabalin 50 MG Cap PO SCH ×2 (08:08→20:17)
[2023-01-19] MEDS: Polyethylene Glycol 3350 Powder 17 GM Packet PO SCH ×2 (08:09→20:26)
[2023-01-19] MEDS: Loratadine 10 MG Tab PO SCH (08:10)
[2023-01-19] MEDS: Omeprazole 20 MG Cap.CR PO SCH (08:10)
[2023-01-19] MEDS: Ferrous Sulfate 325 MG Tab PO SCH (08:10)
[2023-01-19] MEDS: DULoxetine 60 MG Cap PO SCH ×2 (08:11→20:18)
[2023-01-19] MEDS: Montelukast 10 MG Tab PO SCH (08:11)
[2023-01-19] MEDS: Multivitamin Tab PO SCH (08:11)
[2023-01-19] MEDS: Menthol 10%/Methyl Salicylate 15% 85 GM Tube TOP SCH ×4 (08:12→20:58)
[2023-01-19] MEDS: Brexpiprazole [Rexulti] 4 MG Tablet PO SCH (08:14)
[2023-01-19] MEDS: Pregabalin 25 MG Cap PO SCH ×2 (08:19→20:18)
[2023-01-19] MEDS: Zolpidem 5 MG Tab PO SCH (20:18)
[2023-01-20] MEDS: Acetaminophen 500 MG Tab PO SCH ×4 (01:18→18:35)
[2023-01-20] MEDS: Baclofen 10 MG Tab PO PRN ×2 (04:52→21:29)
[2023-01-20] MEDS: oxyCODONE 5 MG Tab PO PRN (04:58)
[2023-01-20] MEDS: Tiotropium Bromide 4 GM Inhalation Spray (2.5mcg/1 dose; 10 doses) INH SCH (06:09)
[2023-01-20] MEDS: Formoterol/Mometasone 200-5 MCG 13 GM Inhaler INH SCH ×2 (06:10→21:19)
[2023-01-20] MEDS: Pregabalin 50 MG Cap PO SCH ×2 (09:10→21:17)
[2023-01-20] MEDS: Ferrous Sulfate 325 MG Tab PO SCH (09:11)
[2023-01-20] MEDS: DULoxetine 60 MG Cap PO SCH ×2 (09:16→21:18)
[2023-01-20] MEDS: Multivitamin Tab PO SCH (09:17)
[2023-01-20] MEDS: Montelukast 10 MG Tab PO SCH (09:17)
[2023-01-20] MEDS: Pregabalin 25 MG Cap PO SCH ×2 (09:17→21:18)
[2023-01-20] MEDS: Loratadine 10 MG Tab PO SCH (09:18)
[2023-01-20] MEDS: Omeprazole 20 MG Cap.CR PO SCH (09:18)
[2023-01-20] MEDS: busPIRone 15 MG Tab PO SCH ×2 (09:19→21:17)
[2023-01-20] MEDS: Polyethylene Glycol 3350 Powder 17 GM Packet PO SCH ×2 (09:20→21:18)
[2023-01-20] MEDS: Brexpiprazole [Rexulti] 4 MG Tablet PO SCH (09:22)
[2023-01-20] MEDS: Menthol 10%/Methyl Salicylate 15% 85 GM Tube TOP SCH ×4 (09:24→21:19)
[2023-01-20] MEDS: Zolpidem 5 MG Tab PO SCH (21:18)
[2023-01-21] MEDS: Acetaminophen 500 MG Tab PO SCH ×4 (01:18→18:27)
[2023-01-21] MEDS: Tiotropium Bromide 4 GM Inhalation Spray (2.5mcg/1 dose; 10 doses) INH SCH (06:10)
[2023-01-21] MEDS: Formoterol/Mometasone 200-5 MCG 13 GM Inhaler INH SCH ×2 (06:11→20:47)
[2023-01-21] MEDS: Pregabalin 50 MG Cap PO SCH ×2 (08:07→20:44)
[2023-01-21] MEDS: Multivitamin Tab PO SCH (08:07)
[2023-01-21] MEDS: busPIRone 15 MG Tab PO SCH ×2 (08:07→20:45)
[2023-01-21] MEDS: Baclofen 10 MG Tab PO PRN ×2 (08:08→20:48)
[2023-01-21] MEDS: Polyethylene Glycol 3350 Powder 17 GM Packet PO SCH ×3 (08:08→20:45)
[2023-01-21] MEDS: Loratadine 10 MG Tab PO SCH (08:08)
[2023-01-21] MEDS: Ferrous Sulfate 325 MG Tab PO SCH (08:08)
[2023-01-21] MEDS: DULoxetine 60 MG Cap PO SCH ×2 (08:08→20:44)
[2023-01-21] MEDS: Pregabalin 25 MG Cap PO SCH ×2 (08:08→20:45)
[2023-01-21] MEDS: Montelukast 10 MG Tab PO SCH (08:08)
[2023-01-21] MEDS: Omeprazole 20 MG Cap.CR PO SCH (08:08)
[2023-01-21] MEDS: Brexpiprazole [Rexulti] 4 MG Tablet PO SCH (08:09)
[2023-01-21] MEDS: Menthol 10%/Methyl Salicylate 15% 85 GM Tube TOP SCH ×4 (08:17→20:47)
[2023-01-21] MEDS: Zolpidem 5 MG Tab PO SCH (20:45)
[2023-01-21] MEDS: ClonazePAM 0.5 MG Tab PO PRN (22:12)
[2023-01-21] MEDS: oxyCODONE 5 MG Tab PO PRN ×2 (22:14)
[2023-01-22] MEDS: Acetaminophen 500 MG Tab PO SCH ×5 (00:51→19:40)
[2023-01-22] MEDS: Tiotropium Bromide 4 GM Inhalation Spray (2.5mcg/1 dose; 10 doses) INH SCH (06:12)
[2023-01-22] MEDS: Formoterol/Mometasone 200-5 MCG 13 GM Inhaler INH SCH ×2 (06:12→21:03)
[2023-01-22] MEDS: Pregabalin 25 MG Cap PO SCH ×2 (08:44→20:59)
[2023-01-22] MEDS: DULoxetine 60 MG Cap PO SCH ×2 (08:44→20:59)
[2023-01-22] MEDS: busPIRone 15 MG Tab PO SCH ×2 (08:45→20:59)
[2023-01-22] MEDS: Ferrous Sulfate 325 MG Tab PO SCH (08:45)
[2023-01-22] MEDS: Montelukast 10 MG Tab PO SCH (08:45)
[2023-01-22] MEDS: Pregabalin 50 MG Cap PO SCH ×2 (08:45→20:58)
[2023-01-22] MEDS: Omeprazole 20 MG Cap.CR PO SCH (08:45)
[2023-01-22] MEDS: Menthol 10%/Methyl Salicylate 15% 85 GM Tube TOP SCH ×4 (08:46→21:03)
[2023-01-22] MEDS: Polyethylene Glycol 3350 Powder 17 GM Packet PO SCH ×2 (08:47→21:02)
[2023-01-22] MEDS: Multivitamin Tab PO SCH (08:47)
[2023-01-22] MEDS: Loratadine 10 MG Tab PO SCH (08:48)
[2023-01-22] MEDS: Brexpiprazole [Rexulti] 4 MG Tablet PO SCH (08:49)
[2023-01-22] MEDS: Zolpidem 5 MG Tab PO SCH (20:59)
[2023-01-22] MEDS: Baclofen 10 MG Tab PO PRN (20:59)
[2023-01-23] MEDS: Acetaminophen 500 MG Tab PO SCH ×4 (00:02→18:15)
[2023-01-23] MEDS: oxyCODONE 5 MG Tab PO PRN (03:14)
[2023-01-23] MEDS: Formoterol/Mometasone 200-5 MCG 13 GM Inhaler INH SCH ×2 (06:05→21:00)
[2023-01-23] MEDS: Tiotropium Bromide 4 GM Inhalation Spray (2.5mcg/1 dose; 10 doses) INH SCH (06:05)
[2023-01-23] MEDS: Pregabalin 50 MG Cap PO SCH ×2 (09:19→20:57)
[2023-01-23] MEDS: Montelukast 10 MG Tab PO SCH (09:20)
[2023-01-23] MEDS: Omeprazole 20 MG Cap.CR PO SCH (09:20)
[2023-01-23] MEDS: Ferrous Sulfate 325 MG Tab PO SCH (09:21)
[2023-01-23] MEDS: Loratadine 10 MG Tab PO SCH (09:21)
[2023-01-23] MEDS: busPIRone 15 MG Tab PO SCH ×2 (09:21→20:57)
[2023-01-23] MEDS: Pregabalin 25 MG Cap PO SCH ×2 (09:23→20:57)
[2023-01-23] MEDS: Multivitamin Tab PO SCH (09:23)
[2023-01-23] MEDS: DULoxetine 60 MG Cap PO SCH ×2 (09:23→20:57)
[2023-01-23] MEDS: Menthol 10%/Methyl Salicylate 15% 85 GM Tube TOP SCH ×4 (09:24→21:00)
[2023-01-23] MEDS: Brexpiprazole [Rexulti] 4 MG Tablet PO SCH (09:28)
[2023-01-23] MEDS: Polyethylene Glycol 3350 Powder 17 GM Packet PO SCH ×2 (14:10→20:59)
[2023-01-23] MEDS: Zolpidem 5 MG Tab PO SCH (20:57)
[2023-01-23] MEDS: Baclofen 10 MG Tab PO PRN (20:58)
[2023-01-23] MEDS: diphenhydrAMINE 25 MG Cap PO PRN (21:07)
[2023-01-24] MEDS: Acetaminophen 500 MG Tab PO SCH ×4 (00:10→18:46)
[2023-01-24] MEDS: Formoterol/Mometasone 200-5 MCG 13 GM Inhaler INH SCH ×2 (06:11→20:44)
[2023-01-24] MEDS: Tiotropium Bromide 4 GM Inhalation Spray (2.5mcg/1 dose; 10 doses) INH SCH (06:12)
[2023-01-24] MEDS: Brexpiprazole [Rexulti] 4 MG Tablet PO SCH (09:45)
[2023-01-24] MEDS: busPIRone 15 MG Tab PO SCH ×2 (09:46→20:42)
[2023-01-24] MEDS: Pregabalin 50 MG Cap PO SCH ×2 (09:46→20:43)
[2023-01-24] MEDS: Omeprazole 20 MG Cap.CR PO SCH (09:47)
[2023-01-24] MEDS: Menthol 10%/Methyl Salicylate 15% 85 GM Tube TOP SCH ×4 (09:47→20:45)
[2023-01-24] MEDS: Loratadine 10 MG Tab PO SCH (09:47)
[2023-01-24] MEDS: Polyethylene Glycol 3350 Powder 17 GM Packet PO SCH ×2 (09:47→20:45)
[2023-01-24] MEDS: Multivitamin Tab PO SCH (09:47)
[2023-01-24] MEDS: Montelukast 10 MG Tab PO SCH (09:47)
[2023-01-24] MEDS: DULoxetine 60 MG Cap PO SCH ×2 (09:47→20:42)
[2023-01-24] MEDS: Ferrous Sulfate 325 MG Tab PO SCH (09:47)
[2023-01-24] MEDS: Pregabalin 25 MG Cap PO SCH ×2 (09:47→20:42)
[2023-01-24] MEDS: Baclofen 10 MG Tab PO PRN ×2 (09:52→18:49)
[2023-01-24] MEDS: Zolpidem 5 MG Tab PO SCH (20:43)
[2023-01-24] MEDS: ClonazePAM 0.5 MG Tab PO PRN (21:47)
[2023-01-25] MEDS: Acetaminophen 500 MG Tab PO SCH ×4 (01:02→18:08)
[2023-01-25] MEDS: Formoterol/Mometasone 200-5 MCG 13 GM Inhaler INH SCH ×2 (06:05→21:05)
[2023-01-25] MEDS: Tiotropium Bromide 4 GM Inhalation Spray (2.5mcg/1 dose; 10 doses) INH SCH (06:05)
[2023-01-25] MEDS: DULoxetine 60 MG Cap PO SCH ×2 (09:14→21:04)
[2023-01-25] MEDS: Omeprazole 20 MG Cap.CR PO SCH (09:14)
[2023-01-25] MEDS: Pregabalin 25 MG Cap PO SCH ×2 (09:14→21:03)
[2023-01-25] MEDS: Pregabalin 50 MG Cap PO SCH ×2 (09:14→21:03)
[2023-01-25] MEDS: Baclofen 10 MG Tab PO PRN ×2 (09:15→18:09)
[2023-01-25] MEDS: Ferrous Sulfate 325 MG Tab PO SCH (09:15)
[2023-01-25] MEDS: Loratadine 10 MG Tab PO SCH (09:16)
[2023-01-25] MEDS: busPIRone 15 MG Tab PO SCH ×2 (09:16→21:04)
[2023-01-25] MEDS: Montelukast 10 MG Tab PO SCH (09:19)
[2023-01-25] MEDS: Multivitamin Tab PO SCH (09:19)
[2023-01-25] MEDS: Polyethylene Glycol 3350 Powder 17 GM Packet PO SCH ×2 (09:19→21:03)
[2023-01-25] MEDS: Brexpiprazole [Rexulti] 4 MG Tablet PO SCH (09:24)
[2023-01-25] MEDS: Menthol 10%/Methyl Salicylate 15% 85 GM Tube TOP SCH ×4 (09:56→21:04)
[2023-01-25] MEDS: ClonazePAM 0.5 MG Tab PO PRN (21:02)
[2023-01-25] MEDS: oxyCODONE 5 MG Tab PO PRN (21:03)
[2023-01-25] MEDS: Zolpidem 5 MG Tab PO SCH (21:04)
[2023-01-26] MEDS: Baclofen 10 MG Tab PO PRN ×2 (01:05→19:39)
[2023-01-26] MEDS: Acetaminophen 500 MG Tab PO SCH ×4 (01:06→18:05)
[2023-01-26] MEDS: DULoxetine 60 MG Cap PO SCH ×2 (08:07→20:16)
[2023-01-26] MEDS: Montelukast 10 MG Tab PO SCH (08:08)
[2023-01-26] MEDS: Pregabalin 25 MG Cap PO SCH ×2 (08:08→20:15)
[2023-01-26] MEDS: Omeprazole 20 MG Cap.CR PO SCH (08:08)
[2023-01-26] MEDS: Multivitamin Tab PO SCH (08:10)
[2023-01-26] MEDS: Ferrous Sulfate 325 MG Tab PO SCH (08:10)
[2023-01-26] MEDS: busPIRone 15 MG Tab PO SCH ×2 (08:10→20:15)
[2023-01-26] MEDS: Pregabalin 50 MG Cap PO SCH ×2 (08:12→20:15)
[2023-01-26] MEDS: Loratadine 10 MG Tab PO SCH (08:15)
[2023-01-26] MEDS: Brexpiprazole [Rexulti] 4 MG Tablet PO SCH (08:16)
[2023-01-26] MEDS: Formoterol/Mometasone 200-5 MCG 13 GM Inhaler INH SCH ×2 (08:18→20:18)
[2023-01-26] MEDS: Tiotropium Bromide 4 GM Inhalation Spray (2.5mcg/1 dose; 10 doses) INH SCH (08:19)
[2023-01-26] MEDS: Polyethylene Glycol 3350 Powder 17 GM Packet PO SCH ×2 (08:21→20:15)
[2023-01-26] MEDS: Menthol 10%/Methyl Salicylate 15% 85 GM Tube TOP SCH ×4 (08:21→20:18)
[2023-01-26] MEDS: oxyCODONE 5 MG Tab PO PRN ×2 (11:12→23:02)
[2023-01-26] MEDS: ClonazePAM 0.5 MG Tab PO PRN (20:16)
[2023-01-26] MEDS: Zolpidem 5 MG Tab PO SCH (20:16)
[2023-01-27] MEDS: Acetaminophen 500 MG Tab PO SCH ×3 (01:06→13:07)
[2023-01-27] MEDS: Baclofen 10 MG Tab PO PRN ×3 (01:07→13:13)
[2023-01-27] MEDS: Tiotropium Bromide 4 GM Inhalation Spray (2.5mcg/1 dose; 10 doses) INH SCH (06:07)
[2023-01-27] MEDS: Formoterol/Mometasone 200-5 MCG 13 GM Inhaler INH SCH (06:07)
[2023-01-27] MEDS: Omeprazole 20 MG Cap.CR PO SCH (09:25)
[2023-01-27] MEDS: Polyethylene Glycol 3350 Powder 17 GM Packet PO SCH (09:25)
[2023-01-27] MEDS: Montelukast 10 MG Tab PO SCH (09:25)
[2023-01-27] MEDS: Ferrous Sulfate 325 MG Tab PO SCH (09:26)
[2023-01-27] MEDS: DULoxetine 60 MG Cap PO SCH (09:26)
[2023-01-27] MEDS: Multivitamin Tab PO SCH (09:26)
[2023-01-27] MEDS: Pregabalin 50 MG Cap PO SCH (09:26)
[2023-01-27] MEDS: Pregabalin 25 MG Cap PO SCH (09:26)
[2023-01-27] MEDS: Loratadine 10 MG Tab PO SCH (09:27)
[2023-01-27] MEDS: busPIRone 15 MG Tab PO SCH (09:27)
[2023-01-27] MEDS: Brexpiprazole [Rexulti] 4 MG Tablet PO SCH (09:28)
[2023-01-27] MEDS: Menthol 10%/Methyl Salicylate 15% 85 GM Tube TOP SCH ×2 (09:47→13:08)
[2023-01-27] MEDS: oxyCODONE 5 MG Tab PO PRN (11:42)
[2023-01-27 14:40] VITALS: BP 109/51; PULSE 93
== END 2023-01-27 13:55 | disposition home health service (06) | DRG 948 ==
LOC: VM.MS 15:45
PROVIDERS: ADMIT Physician Assistant; ATTEND Physician Assistant
DX: R53.81 Other malaise (principal); E86.0 Dehydration; F41.9 Anxiety disorder, unspecified; I95.9 Hypotension, unspecified; J44.9 Chronic obstructive pulmonary disease, unspecified; M51.35 Other intervertebral disc degeneration, thoracolumbar region; F32.A Depression, unspecified; K21.9 Gastro-esophageal reflux disease without esophagitis; G47.33 Obstructive sleep apnea (adult) (pediatric); E16.2 Hypoglycemia, unspecified; G47.00 Insomnia, unspecified; F41.1 Generalized anxiety disorder; Z79.899 Other long term (current) drug therapy; Z98.1 Arthrodesis status; Z98.890 Other specified postprocedural states
CPT/HCPCS: 36415; 80048; 93971-LT; 95851-GO; 97110-GP; 97116-GP; 97530-GO; 97530-GP; 97535-GO; A9270-GY; J7030